=== PATIENT | male | born 1955 | race American Indian/Alaskan Native ===

== ENCOUNTER 2020-09-16 17:39 | Inpatient (IN) | payer OTHER ==
[2020-09-16] MEDS ORDERED: SODIUM CHLORIDE 0.9% 500 ML INFUS.BAG IV ONE ×2 (18:27→22:14)
[2020-09-16] MEDS ORDERED: ACETAMINOPHEN 1000 MG/100 ML VIAL (NON FORMULARY) IVPB ONE (18:49)
[2020-09-16] MEDS ORDERED: ACETAMINOPHEN INJECTION 100 ML IVPB ONE (20:11)
[2020-09-16] MEDS ORDERED: VANCOMYCIN 1 GM in D5W (PRE-DOCKED) 1,000 MG/250 ML IVPB ONE (20:20)
[2020-09-16] MEDS ORDERED: PIPERACILLIN/TAZOB 3.375 GM 3.375 GM in DEXTROSE 5%-WATER - 50 ML IVPB ONE (20:20)
[2020-09-16 20:22] LABS: VENOUS BASE EXCESS 3.6 mmol/L (-2-2); VENOUS O2 SATURATION 79.5 % (70-80); VENOUS PCO2 51.9 mmHg (38-52); VENOUS PH 7.379 (7.310-7.410)
[2020-09-16 20:23] LABS: BASO % 0.3 % (0-2.0); EOS % 0.2 % (0-4.5); HEMOGLOBIN 8.5 GM/dL (11.7-16.9); LYMPH % 7.4 % (8-40); MCH 30.7 pg (25.7-33.7); MCHC 32.7 g/dl (32.0-35.9); MEAN CELL VOLUME 93.9 fl (80-96); MEAN PLT VOLUME 9.8 fl (7.5-11.1); MONO % 4.6 % (3.8-10.2); NEUT % 87.5 % (42.8-82.8); PLATELET COUNT 291 K/MM3 (134-434); RBC 2.76 M/mm3 (4.00-5.60); RDW 16.9 % (11.9-15.9); WHITE BLOOD COUNT 15.1 K/mm3 (4.0-10.0)
[2020-09-16] MEDS ORDERED: PIPERACILLIN/TAZOB 3.375 GM 3.375 GM/50 ML BAG IVPB ONE (20:35)
[2020-09-16 20:39] LABS: CHLORIDE 101 mmol/L (98-107); POTASSIUM 4.5 mmol/L (3.5-5.1); SODIUM 142 mmol/L (136-145)
[2020-09-16 20:41] LABS: CALCIUM 9.2 mg/dL (8.5-10.1)
[2020-09-16 20:42] LABS: ALBUMIN 2.6 g/dl (3.4-5.0); ANION GAP 6 MMOL/L (8-16); BLOOD UREA NITROGEN 21.9 mg/dL (7-18); CO2 35 mmol/L (21-32); GLUCOSE,RANDOM 165 mg/dL (74-106)
[2020-09-16 20:45] LABS: CREATININE 0.4 mg/dL (0.55-1.3); SGOT/AST 14 U/L (15-37); SGPT/ALT 16 U/L (13-61)
[2020-09-16 20:47] LABS: BILIRUBIN,TOTAL 0.6 mg/dL (0.2-1); TOT PROT 7.3 g/dl (6.4-8.2)
[2020-09-16 20:48] LABS: ALK PHOS 160 U/L (45-117)
[2020-09-16] MEDS ORDERED: VANCOMYCIN 1 GRAM (PRE-DOCKED) 1,000 MG/250 ML BAG IVPB ONE (21:13)
[2020-09-16 21:27] LABS: EPI CELLS >36 /uL (0-25.1); HYALINE CASTS 54 /uL (0-3.1); URINE APPEARANCE TURBID; URINE BACTERIA >9,000 /uL (0-1359); URINE BILIRUBIN NEGATIVE (NEGATIVE); URINE COLOR YELLOW; URINE GLUCOSE (UA) NEGATIVE (NEGATIVE); URINE KETONE TRACE (NEGATIVE); URINE LEUK ESTERASE 3+ (NEGATIVE); URINE NITRITE POSITIVE (NEGATIVE); URINE PROTEIN 1+ (NEGATIVE); URINE WBC 14784 /uL (0-25.8); YEAST REVIEW (NEGATIVE)
[2020-09-16 21:34] LABS: INR 1.11 (0.83-1.09); PROTHROMBIN TIME (PATIENT) 13.6 SEC (9.7-13.0)
[2020-09-16 21:37] LABS: ACTIVATED PTT 35.9 SECONDS (25.2-36.5)
[2020-09-17 01:21] LABS: URINE RBC 135 /uL (0-23.9)
[2020-09-17] MEDS ORDERED: PIPERACILLIN/TAZOB 3.375 GM 3.375 GM/50 ML BAG IVPB ONE ×2 (03:45→10:03)
[2020-09-17] MEDS: PIPERACILLIN/TAZOB 3.375 GM 3.375 GM in DEXTROSE 5%-WATER - 50 ML IVPB SCH ×3 (04:16→20:16)
[2020-09-17] MEDS: SODIUM CHLORIDE 1,000 ML IV SCH (04:16)
[2020-09-17 06:20] LABS: BASO % 0.5 % (0-2.0); EOS % 0.7 % (0-4.5); HEMATOCRIT 22.4 % (35.4-49); HEMOGLOBIN 7.4 GM/dL (11.7-16.9); LYMPH % 12.6 % (8-40); MCH 31.2 pg (25.7-33.7); MCHC 33.2 g/dl (32.0-35.9); MEAN PLT VOLUME 9.8 fl (7.5-11.1); MONO % 6.6 % (3.8-10.2); NEUT % 79.6 % (42.8-82.8); PLATELET COUNT 242 K/MM3 (134-434); RBC 2.38 M/mm3 (4.00-5.60); WHITE BLOOD COUNT 9.3 K/mm3 (4.0-10.0)
[2020-09-17 06:39] LABS: ALBUMIN 2.2 g/dl (3.4-5.0); BLOOD UREA NITROGEN 16.2 mg/dL (7-18); CALCIUM 8.8 mg/dL (8.5-10.1)
[2020-09-17 06:42] LABS: CREATININE 0.4 mg/dL (0.55-1.3)
[2020-09-17 06:44] LABS: BILIRUBIN,TOTAL 0.5 mg/dL (0.2-1); TOT PROT 6.2 g/dl (6.4-8.2)
[2020-09-17] MEDS ORDERED: ACETAMINOPHEN INJECTION 100 ML IVPB ONE (08:51)
[2020-09-17] MEDS ORDERED: VANCOMYCIN 1 GRAM (PRE-DOCKED) 1,000 MG/250 ML BAG IVPB ONE (08:52)
[2020-09-17] MEDS ORDERED: VANCOMYCIN 1,000 MG in DEXTROSE 5%-WATER - 250 ML IVPB SCH (09:00)
[2020-09-17] MEDS: HEPARIN NA (PORCINE) 5,000 UNITS/ML 1ML VIAL SQ SCH ×2 (10:01→22:42)
[2020-09-17] MEDS ORDERED: HEPARIN NA (PORCINE) 5,000 UNITS/ML 1ML VIAL ONE (10:04)
[2020-09-17] MEDS ORDERED: ACETAMINOPHEN 1000 MG/100 ML VIAL (NON FORMULARY) IVPB ONE (10:22)
[2020-09-17] MEDS ORDERED: FENTANYL PATCH WASTE MC PRN (10:40)
[2020-09-17] MEDS ORDERED: fentaNYL 12mcg/hr PATCH.TD72 TD SCH (10:45)
[2020-09-17] MEDS ORDERED: ALBUTEROL SO4 HFA INHALER IH SCH (10:45)
[2020-09-17] MEDS ORDERED: ACETAMINOPHEN 650 MG/20.3 ML ORAL SOLUTION (CUPS) PO PRN (11:27)
[2020-09-17] MEDS: levETIRAcetam 500 MG/5 ML INJECTION VIAL IVPB SCH ×2 (12:00→22:42)
[2020-09-17 15:29] LABS: ARTERIAL BLD GAS O2 SATURATION 98.3 mmHg (95-98); ARTERIAL BLOOD GAS BASE EXCESS 5.9 mmol/L (-2-2); ARTERIAL BLOOD GAS PO2 114.9 mmHg (80-100); ARTERIAL BLOOD GAS pH 7.442 (7.350-7.450)
[2020-09-17 15:32] LABS: ALLENS TEST POSITIVE
[2020-09-17] MEDS: BACITRACIN 15 GM TUBE TOPICAL OINTMENT TP SCH ×2 (17:00→22:42)
[2020-09-17] MEDS: D5-NS + 20 MEQ KCL - 20 MEQ/1,000 ML INFUS.BAG IV SCH (17:00)
[2020-09-17] MEDS ORDERED: PIPERACILLIN/TAZOBACTAM 3.375 GM VIAL IVPB ONE (17:51)
[2020-09-17] MEDS ORDERED: DEXTROSE 5%-WATER - 50 ML IVPB ONE (17:51)
[2020-09-17] MEDS ORDERED: PT OWN MED DRAWER 7, Y5N ONE ×2 (17:51→21:25)
[2020-09-17] MEDS ORDERED: SUCRALFATE 1 GM/10 ML UNIT DOSE CUPS NGT SCH (18:00)
[2020-09-17] MEDS: SUCRALFATE 1 GM/10 ML UNIT DOSE CUPS NGT SCH (20:17)
[2020-09-17] MEDS: GABAPENTIN 250 MG/5 ML ORAL SOLUTION, 470 ML BOTTLE NGT SCH (20:18)
[2020-09-17] MEDS ORDERED: MELATONIN 5 MG TABLETS PO SCH (22:00)
[2020-09-17] MEDS ORDERED: ATORVASTATIN CA 80 MG TABLET (FP) PO SCH (22:00)
[2020-09-17] MEDS: VANCOMYCIN 1 GRAM (PRE-DOCKED) 1,000 MG/250 ML BAG IVPB SCH (22:41)
[2020-09-17] MEDS: SODIUM CHLORIDE NASAL SPRAY 44 ML BOTTLE NS SCH (22:43)
[2020-09-18] MEDS: ATORVASTATIN CA 80 MG TABLET (FP) NGT SCH ×2 (00:06→23:16)
[2020-09-18] MEDS: SUCRALFATE 1 GM/10 ML UNIT DOSE CUPS NGT SCH ×3 (00:06→23:15)
[2020-09-18] MEDS: GABAPENTIN 250 MG/5 ML ORAL SOLUTION, 470 ML BOTTLE NGT SCH ×4 (00:07→23:35)
[2020-09-18] MEDS: MELATONIN 5 MG TABLETS NR SCH ×2 (00:07→23:15)
[2020-09-18] MEDS ORDERED: METOPROLOL TARTRATE 5 MG/5 ML VIAL IVPUSH ONE (00:44)
[2020-09-18] MEDS ORDERED: PIPERACILLIN/TAZOBACTAM 3.375 GM VIAL IVPB ONE ×3 (01:35→17:31)
[2020-09-18] MEDS ORDERED: DEXTROSE 5%-WATER - 50 ML IVPB ONE ×3 (01:36→17:31)
[2020-09-18] MEDS: PIPERACILLIN/TAZOB 3.375 GM 3.375 GM in DEXTROSE 5%-WATER - 50 ML IVPB SCH ×3 (01:37→17:40)
[2020-09-18] MEDS ORDERED: PIPERACILLIN/TAZOB 3.375 GM 3.375 GM in DEXTROSE 5%-WATER - 50 ML IVPB SCH (02:00)
[2020-09-18] MEDS: SODIUM CHLORIDE 1,000 ML IV SCH (06:54)
[2020-09-18] MEDS: BACITRACIN 15 GM TUBE TOPICAL OINTMENT TP SCH ×3 (06:54→23:16)
[2020-09-18 07:21] LABS: BASO % 0.4 % (0-2.0); EOS % 0.2 % (0-4.5); HEMATOCRIT 20.8 % (35.4-49); LYMPH % 13.5 % (8-40); MCH 30.7 pg (25.7-33.7); MCHC 32.3 g/dl (32.0-35.9); MEAN CELL VOLUME 95.1 fl (80-96); MEAN PLT VOLUME 10.2 fl (7.5-11.1); MONO % 8.2 % (3.8-10.2); NEUT % 77.7 % (42.8-82.8); PLATELET COUNT 241 K/MM3 (134-434); RBC 2.19 M/mm3 (4.00-5.60); RDW 17.3 % (11.9-15.9); WHITE BLOOD COUNT 8.5 K/mm3 (4.0-10.0)
[2020-09-18 07:39] LABS: POTASSIUM 3.6 mmol/L (3.5-5.1)
[2020-09-18 07:45] LABS: CALCIUM 8.6 mg/dL (8.5-10.1)
[2020-09-18 07:49] LABS: CREATININE 0.4 mg/dL (0.55-1.3)
[2020-09-18 07:51] LABS: BILIRUBIN,TOTAL 0.6 mg/dL (0.2-1); TOT PROT 5.8 g/dl (6.4-8.2)
[2020-09-18] MEDS ORDERED: dilTIAZem HCL 50 MG/10 ML - 10 ML VIAL IVPUSH PRN (07:51)
[2020-09-18] MEDS ORDERED: dilTIAZem HCL 50 MG/10 ML - 10 ML VIAL IVPUSH ONE (07:51)
[2020-09-18] MEDS ORDERED: FUROSEMIDE 40 MG/4 ML INJECTABLE VIAL IVPUSH ONE ×3 (07:53→17:00)
[2020-09-18 08:20] LABS: HEMOGLOBIN 6.7 GM/dL (11.7-16.9)
[2020-09-18] MEDS: VANCOMYCIN 1 GRAM (PRE-DOCKED) 1,000 MG/250 ML BAG IVPB SCH ×2 (08:55→23:13)
[2020-09-18] MEDS ORDERED: VANCOMYCIN 1,000 MG in DEXTROSE 5%-WATER - 250 ML IVPB SCH (09:00)
[2020-09-18] MEDS ORDERED: FAMOTIDINE 40 MG/5 ML ORAL SUSPENSION PO SCH (10:00)
[2020-09-18] MEDS ORDERED: SUCRALFATE 1 GM TABLET (FP) PO SCH (10:00)
[2020-09-18] MEDS: HEPARIN NA (PORCINE) 5,000 UNITS/ML 1ML VIAL SQ SCH ×2 (10:28→23:15)
[2020-09-18] MEDS: levETIRAcetam 500 MG/5 ML INJECTION VIAL IVPB SCH ×2 (10:29→23:14)
[2020-09-18] MEDS: FAMOTIDINE 40 MG/5 ML ORAL SUSPENSION NGT SCH (10:30)
[2020-09-18] MEDS: SODIUM CHLORIDE NASAL SPRAY 44 ML BOTTLE NS SCH ×2 (10:30→23:35)
[2020-09-18] MEDS: LEVALBUTEROL HCL 0.31 MG/3 ML VIAL.NEB IH PRN (16:35)
[2020-09-18] MEDS ORDERED: LEVALBUTEROL HCL 0.31 MG/3 ML VIAL.NEB IH PRN (16:53)
[2020-09-18] MEDS: D5-NS + 20 MEQ KCL - 20 MEQ/1,000 ML INFUS.BAG IV SCH (17:40)
[2020-09-18] MEDS ORDERED: ALBUTEROL SO4 2.5/IPRATROPIUM 0.5 INH SOL 3 ML VIAL.NEB. NEB PRN (17:51)
[2020-09-18] MEDS ORDERED: SODIUM CHLORIDE FOR INHALATION 3 ML VIAL.NEB IH PRN (17:51)
[2020-09-18] MEDS: guaiFENesin 200 MG/10 ML 10 ML UNIT-DOSE CUPS NGT SCH ×2 (18:10→23:15)
[2020-09-18] MEDS: ACETAMINOPHEN 650 MG/20.3 ML ORAL SOLUTION (CUPS) NGT PRN (18:10)
[2020-09-18] MEDS ORDERED: ALBUTEROL SO4 2.5/IPRATROPIUM 0.5 INH SOL 3 ML VIAL.NEB. NEB SCH (20:00)
[2020-09-18] MEDS ORDERED: PT OWN MED DRAWER 7, Y5N ONE (21:32)
[2020-09-19] MEDS ORDERED: DEXTROSE 5%-WATER - 50 ML IVPB ONE ×5 (01:09→23:10)
[2020-09-19] MEDS ORDERED: PIPERACILLIN/TAZOBACTAM 3.375 GM VIAL IVPB ONE ×5 (01:09→23:10)
[2020-09-19] MEDS: PIPERACILLIN/TAZOB 3.375 GM 3.375 GM in DEXTROSE 5%-WATER - 50 ML IVPB SCH ×3 (02:46→17:42)
[2020-09-19] MEDS: BACITRACIN 15 GM TUBE TOPICAL OINTMENT TP SCH ×3 (06:34→23:13)
[2020-09-19] MEDS: GABAPENTIN 250 MG/5 ML ORAL SOLUTION, 470 ML BOTTLE NGT SCH ×3 (06:35→23:13)
[2020-09-19] MEDS ORDERED: FUROSEMIDE 40 MG/4 ML INJECTABLE VIAL IVPUSH ONE (07:30)
[2020-09-19] MEDS: LEVALBUTEROL HCL 0.31 MG/3 ML VIAL.NEB IH PRN ×2 (07:55→23:15)
[2020-09-19] MEDS: SUCRALFATE 1 GM/10 ML UNIT DOSE CUPS NGT SCH ×2 (09:32→23:13)
[2020-09-19] MEDS: guaiFENesin 200 MG/10 ML 10 ML UNIT-DOSE CUPS NGT SCH ×4 (09:32→23:14)
[2020-09-19] MEDS: HEPARIN NA (PORCINE) 5,000 UNITS/ML 1ML VIAL SQ SCH ×2 (09:33→23:14)
[2020-09-19] MEDS ORDERED: PT OWN MED DRAWER 7, Y5N ONE ×3 (09:34→13:56)
[2020-09-19] MEDS: FAMOTIDINE 40 MG/5 ML ORAL SUSPENSION NGT SCH (09:35)
[2020-09-19] MEDS: levETIRAcetam 500 MG/5 ML INJECTION VIAL IVPB SCH ×2 (10:04→23:14)
[2020-09-19] MEDS: SODIUM CHLORIDE NASAL SPRAY 44 ML BOTTLE NS SCH ×3 (10:19→23:13)
[2020-09-19] MEDS: D5-NS + 20 MEQ KCL - 20 MEQ/1,000 ML INFUS.BAG IV SCH (11:40)
[2020-09-19 11:42] LABS: BASO % 0.7 % (0-2.0); EOS % 0.9 % (0-4.5); HEMATOCRIT 30.7 % (35.4-49); HEMOGLOBIN 9.9 GM/dL (11.7-16.9); LYMPH % 9.7 % (8-40); MCHC 32.2 g/dl (32.0-35.9); MEAN CELL VOLUME 93.1 fl (80-96); MONO % 6.5 % (3.8-10.2); NEUT % 82.2 % (42.8-82.8); PLATELET COUNT 242 K/MM3 (134-434); RDW 16.3 % (11.9-15.9); WHITE BLOOD COUNT 10.2 K/mm3 (4.0-10.0)
[2020-09-19 11:59] LABS: CALCIUM 8.7 mg/dL (8.5-10.1)
[2020-09-19 12:00] LABS: BLOOD UREA NITROGEN 11.8 mg/dL (7-18)
[2020-09-19 12:03] LABS: CREATININE 0.4 mg/dL (0.55-1.3)
[2020-09-19 12:05] LABS: BILIRUBIN,TOTAL 0.8 mg/dL (0.2-1); TOT PROT 6.3 g/dl (6.4-8.2)
[2020-09-19] MEDS: VANCOMYCIN 1 GRAM (PRE-DOCKED) 1,000 MG/250 ML BAG IVPB SCH (13:59)
[2020-09-19] MEDS: KCL 10 MEQ IVPB 10 MEQ/100 ML INFUS.BAG IVPB SCH ×2 (16:04→18:29)
[2020-09-19] MEDS ORDERED: FENTANYL PATCH WASTE MC PRN ×2 (21:11)
[2020-09-19] MEDS: ATORVASTATIN CA 80 MG TABLET (FP) NGT SCH (23:13)
[2020-09-19] MEDS: MELATONIN 5 MG TABLETS NR SCH (23:14)
[2020-09-19] MEDS: ALBUTEROL SO4 2.5/IPRATROPIUM 0.5 INH SOL 3 ML VIAL.NEB. NEB SCH (23:15)
[2020-09-20] MEDS: PIPERACILLIN/TAZOB 3.375 GM 3.375 GM in DEXTROSE 5%-WATER - 50 ML IVPB SCH ×2 (02:05→10:06)
[2020-09-20] MEDS: GABAPENTIN 250 MG/5 ML ORAL SOLUTION, 470 ML BOTTLE NGT SCH ×3 (05:44→22:34)
[2020-09-20] MEDS: BACITRACIN 15 GM TUBE TOPICAL OINTMENT TP SCH ×3 (05:44→22:34)
[2020-09-20 07:04] LABS: BASO % 0.7 % (0-2.0); EOS % 1.7 % (0-4.5); HEMATOCRIT 27.4 % (35.4-49); LYMPH % 16.7 % (8-40); MCH 30.4 pg (25.7-33.7); MEAN PLT VOLUME 9.6 fl (7.5-11.1); NEUT % 71.9 % (42.8-82.8); PLATELET COUNT 230 K/MM3 (134-434); RBC 2.98 M/mm3 (4.00-5.60); RDW 16.5 % (11.9-15.9); WHITE BLOOD COUNT 7.2 K/mm3 (4.0-10.0)
[2020-09-20 07:17] LABS: POTASSIUM 3.2 mmol/L (3.5-5.1)
[2020-09-20 07:20] LABS: ALBUMIN 1.9 g/dl (3.4-5.0); BLOOD UREA NITROGEN 11.1 mg/dL (7-18); CALCIUM 8.7 mg/dL (8.5-10.1)
[2020-09-20 07:23] LABS: CREATININE 0.4 mg/dL (0.55-1.3)
[2020-09-20 07:25] LABS: BILIRUBIN,TOTAL 0.5 mg/dL (0.2-1)
[2020-09-20] MEDS: LEVALBUTEROL HCL 0.31 MG/3 ML VIAL.NEB IH PRN ×2 (07:47→20:57)
[2020-09-20] MEDS ORDERED: PIPERACILLIN/TAZOBACTAM 3.375 GM VIAL IVPB ONE (09:56)
[2020-09-20] MEDS ORDERED: DEXTROSE 5%-WATER - 50 ML IVPB ONE (09:57)
[2020-09-20] MEDS: guaiFENesin 200 MG/10 ML 10 ML UNIT-DOSE CUPS NGT SCH ×4 (10:06→22:09)
[2020-09-20] MEDS: FAMOTIDINE 40 MG/5 ML ORAL SUSPENSION NGT SCH (10:06)
[2020-09-20] MEDS: SUCRALFATE 1 GM/10 ML UNIT DOSE CUPS NGT SCH ×2 (10:06→22:34)
[2020-09-20] MEDS: HEPARIN NA (PORCINE) 5,000 UNITS/ML 1ML VIAL SQ SCH ×2 (10:07→22:08)
[2020-09-20] MEDS: levETIRAcetam 500 MG/5 ML INJECTION VIAL IVPB SCH ×2 (10:07→22:09)
[2020-09-20] MEDS: SODIUM CHLORIDE NASAL SPRAY 44 ML BOTTLE NS SCH ×2 (10:19→22:34)
[2020-09-20] MEDS ORDERED: fentaNYL 12mcg/hr PATCH.TD72 TD SCH (10:45)
[2020-09-20 10:51] LABS: MAGNESIUM 1.9 mg/dL (1.8-2.4)
[2020-09-20] MEDS: KCL 10 MEQ IVPB 10 MEQ/100 ML INFUS.BAG IVPB SCH ×3 (12:02→14:21)
[2020-09-20] MEDS: D5-NS + 20 MEQ KCL - 20 MEQ/1,000 ML INFUS.BAG IV SCH (15:14)
[2020-09-20] MEDS ORDERED: TIGECYCLINE 100 MG in DEXTROSE 5%-WATER - 100 ML IVPB ONE (16:00)
[2020-09-20] MEDS: VANCOMYCIN 1 GRAM (PRE-DOCKED) 1,000 MG/250 ML BAG IVPB SCH (17:02)
[2020-09-20] MEDS: MELATONIN 5 MG TABLETS NR SCH (22:09)
[2020-09-20] MEDS: ATORVASTATIN CA 80 MG TABLET (FP) NGT SCH (22:09)
[2020-09-21] MEDS: GABAPENTIN 250 MG/5 ML ORAL SOLUTION, 470 ML BOTTLE NGT SCH ×3 (05:26→22:43)
[2020-09-21] MEDS: BACITRACIN 15 GM TUBE TOPICAL OINTMENT TP SCH ×3 (05:26→22:42)
[2020-09-21 07:20] LABS: EOS % 4.5 % (0-4.5); HEMATOCRIT 26.6 % (35.4-49); HEMOGLOBIN 8.7 GM/dL (11.7-16.9); LYMPH % 17.9 % (8-40); MCH 30.3 pg (25.7-33.7); MCHC 32.9 g/dl (32.0-35.9); MEAN CELL VOLUME 92.1 fl (80-96); MEAN PLT VOLUME 9.2 fl (7.5-11.1); MONO % 8.5 % (3.8-10.2); NEUT % 68.1 % (42.8-82.8); PLATELET COUNT 202 K/MM3 (134-434); RBC 2.89 M/mm3 (4.00-5.60); WHITE BLOOD COUNT 5.4 K/mm3 (4.0-10.0)
[2020-09-21 07:32] LABS: POTASSIUM 3.5 mmol/L (3.5-5.1)
[2020-09-21 07:42] LABS: CALCIUM 8.8 mg/dL (8.5-10.1)
[2020-09-21 07:43] LABS: ALBUMIN 1.7 g/dl (3.4-5.0); BLOOD UREA NITROGEN 14.4 mg/dL (7-18)
[2020-09-21 07:46] LABS: CREATININE 0.3 mg/dL (0.55-1.3)
[2020-09-21 07:47] LABS: BILIRUBIN,TOTAL 0.4 mg/dL (0.2-1)
[2020-09-21 07:48] LABS: TOT PROT 5.7 g/dl (6.4-8.2)
[2020-09-21] MEDS ORDERED: PT OWN MED DRAWER 7, Y5N ONE (09:16)
[2020-09-21] MEDS: guaiFENesin 200 MG/10 ML 10 ML UNIT-DOSE CUPS NGT SCH ×4 (09:26→22:43)
[2020-09-21] MEDS: SUCRALFATE 1 GM/10 ML UNIT DOSE CUPS NGT SCH ×2 (09:26→22:43)
[2020-09-21] MEDS: HEPARIN NA (PORCINE) 5,000 UNITS/ML 1ML VIAL SQ SCH ×2 (09:26→22:42)
[2020-09-21] MEDS: TIGECYCLINE 50 MG in DEXTROSE 5%-WATER - 100 ML IVPB SCH ×2 (09:27→22:37)
[2020-09-21] MEDS: FAMOTIDINE 40 MG/5 ML ORAL SUSPENSION NGT SCH (09:29)
[2020-09-21] MEDS: SODIUM CHLORIDE NASAL SPRAY 44 ML BOTTLE NS SCH ×2 (09:30→22:48)
[2020-09-21] MEDS: levETIRAcetam 500 MG/5 ML INJECTION VIAL IVPB SCH ×2 (10:56→22:43)
[2020-09-21] MEDS ORDERED: LEVALBUTEROL HCL 0.31 MG/3 ML VIAL.NEB IH SCH (12:45)
[2020-09-21] MEDS: D5-NS + 20 MEQ KCL - 20 MEQ/1,000 ML INFUS.BAG IV SCH (13:14)
[2020-09-21] MEDS: LEVALBUTEROL HCL 0.31 MG/3 ML VIAL.NEB IH SCH ×2 (14:46→21:20)
[2020-09-21] MEDS ORDERED: FLU VACCINE (FLULAVAL) PF 60 MCG/0.5 ML SYRINGE 2020-2021 IM ONE (14:50)
[2020-09-21] MEDS: VANCOMYCIN 1 GRAM (PRE-DOCKED) 1,000 MG/250 ML BAG IVPB SCH (15:10)
[2020-09-21] MEDS: MELATONIN 5 MG TABLETS NR SCH (22:43)
[2020-09-21] MEDS: ATORVASTATIN CA 80 MG TABLET (FP) NGT SCH (22:43)
[2020-09-22] MEDS: LEVALBUTEROL HCL 0.31 MG/3 ML VIAL.NEB IH SCH (05:13)
[2020-09-22] MEDS: GABAPENTIN 250 MG/5 ML ORAL SOLUTION, 470 ML BOTTLE NGT SCH ×3 (06:30→22:20)
[2020-09-22] MEDS: BACITRACIN 15 GM TUBE TOPICAL OINTMENT TP SCH ×3 (06:30→22:21)
[2020-09-22 08:17] LABS: BASO % 0.7 % (0-2.0); EOS % 3.2 % (0-4.5); HEMATOCRIT 27.5 % (35.4-49); LYMPH % 19.9 % (8-40); MCH 29.8 pg (25.7-33.7); MCHC 32.7 g/dl (32.0-35.9); MEAN CELL VOLUME 91.1 fl (80-96); MEAN PLT VOLUME 9.6 fl (7.5-11.1); MONO % 8.2 % (3.8-10.2); PLATELET COUNT 202 K/MM3 (134-434); RBC 3.02 M/mm3 (4.00-5.60); RDW 15.4 % (11.9-15.9); WHITE BLOOD COUNT 4.8 K/mm3 (4.0-10.0)
[2020-09-22 08:34] LABS: POTASSIUM 3.3 mmol/L (3.5-5.1)
[2020-09-22 08:37] LABS: ALBUMIN 1.7 g/dl (3.4-5.0); CALCIUM 8.9 mg/dL (8.5-10.1)
[2020-09-22 08:40] LABS: CREATININE 0.3 mg/dL (0.55-1.3)
[2020-09-22 08:41] LABS: BILIRUBIN,TOTAL 0.4 mg/dL (0.2-1); TOT PROT 5.5 g/dl (6.4-8.2)
[2020-09-22] MEDS: SUCRALFATE 1 GM/10 ML UNIT DOSE CUPS NGT SCH ×2 (10:16→22:16)
[2020-09-22] MEDS: HEPARIN NA (PORCINE) 5,000 UNITS/ML 1ML VIAL SQ SCH ×2 (10:16→22:17)
[2020-09-22] MEDS: guaiFENesin 200 MG/10 ML 10 ML UNIT-DOSE CUPS NGT SCH ×4 (10:17→22:16)
[2020-09-22] MEDS: levETIRAcetam 500 MG/5 ML INJECTION VIAL IVPB SCH ×2 (10:17→22:17)
[2020-09-22] MEDS: SODIUM CHLORIDE NASAL SPRAY 44 ML BOTTLE NS SCH ×2 (10:19→22:21)
[2020-09-22] MEDS: TIGECYCLINE 50 MG in DEXTROSE 5%-WATER - 100 ML IVPB SCH ×2 (10:20→22:16)
[2020-09-22] MEDS: methylPREDNISolone NA SUCC 40 MG/1 ML VIAL IVPUSH SCH ×3 (11:58→22:17)
[2020-09-22 11:59] LABS: N-TERMINAL BNP 6059.7 pg/ml (5-125)
[2020-09-22] MEDS ORDERED: PT OWN MED DRAWER 7, Y5N ONE (12:19)
[2020-09-22] MEDS: KCL 10 MEQ IVPB 10 MEQ/100 ML INFUS.BAG IVPB SCH ×2 (12:23→14:49)
[2020-09-22] MEDS: FAMOTIDINE 40 MG/5 ML ORAL SUSPENSION NGT SCH (12:23)
[2020-09-22] MEDS: D5-NS + 20 MEQ KCL - 20 MEQ/1,000 ML INFUS.BAG IV SCH (17:03)
[2020-09-22] MEDS: VANCOMYCIN 1 GRAM (PRE-DOCKED) 1,000 MG/250 ML BAG IVPB SCH (17:03)
[2020-09-22] MEDS: ALBUTEROL SO4 0.083% IH SOL 2.5 MG/3 ML VIAL.NEB. NEB PRN (22:14)
[2020-09-22] MEDS: ATORVASTATIN CA 80 MG TABLET (FP) NGT SCH (22:17)
[2020-09-22] MEDS: MELATONIN 5 MG TABLETS NR SCH (22:17)
[2020-09-22] MEDS ORDERED: MORPHINE SULFATE 2 MG/ML VIAL IVPUSH PRN (22:39)
[2020-09-23] MEDS: methylPREDNISolone NA SUCC 40 MG/1 ML VIAL IVPUSH SCH ×2 (02:18→09:29)
[2020-09-23] MEDS: BACITRACIN 15 GM TUBE TOPICAL OINTMENT TP SCH ×3 (05:23→22:13)
[2020-09-23] MEDS: GABAPENTIN 250 MG/5 ML ORAL SOLUTION, 470 ML BOTTLE NGT SCH ×3 (05:23→22:07)
[2020-09-23 06:43] LABS: BASO % 0.1 % (0-2.0); HEMATOCRIT 27.6 % (35.4-49); MCH 29.4 pg (25.7-33.7); MCHC 32.6 g/dl (32.0-35.9); MEAN CELL VOLUME 90.3 fl (80-96); MEAN PLT VOLUME 9.8 fl (7.5-11.1); MONO % 2.1 % (3.8-10.2); NEUT % 80.8 % (42.8-82.8); PLATELET COUNT 199 K/MM3 (134-434); RBC 3.05 M/mm3 (4.00-5.60); RDW 14.9 % (11.9-15.9); WHITE BLOOD COUNT 2.2 K/mm3 (4.0-10.0)
[2020-09-23 07:18] LABS: BLOOD UREA NITROGEN 22.3 mg/dL (7-18); CALCIUM 8.5 mg/dL (8.5-10.1)
[2020-09-23 07:19] LABS: ALBUMIN 1.8 g/dl (3.4-5.0)
[2020-09-23 07:20] LABS: CREATININE 0.4 mg/dL (0.55-1.3)
[2020-09-23 07:22] LABS: BILIRUBIN,TOTAL 0.4 mg/dL (0.2-1); TOT PROT 5.5 g/dl (6.4-8.2)
[2020-09-23] MEDS: HEPARIN NA (PORCINE) 5,000 UNITS/ML 1ML VIAL SQ SCH ×2 (09:28→22:05)
[2020-09-23] MEDS: SUCRALFATE 1 GM/10 ML UNIT DOSE CUPS NGT SCH ×2 (09:29→22:05)
[2020-09-23] MEDS: levETIRAcetam 500 MG/5 ML INJECTION VIAL IVPB SCH ×2 (09:29→22:14)
[2020-09-23] MEDS: guaiFENesin 200 MG/10 ML 10 ML UNIT-DOSE CUPS NGT SCH ×4 (09:29→22:07)
[2020-09-23] MEDS: FAMOTIDINE 40 MG/5 ML ORAL SUSPENSION NGT SCH (09:31)
[2020-09-23] MEDS: D5-NS + 20 MEQ KCL - 20 MEQ/1,000 ML INFUS.BAG IV SCH ×2 (09:32→13:34)
[2020-09-23] MEDS: SODIUM CHLORIDE NASAL SPRAY 44 ML BOTTLE NS SCH ×2 (09:32→22:18)
[2020-09-23] MEDS: TIGECYCLINE 50 MG in DEXTROSE 5%-WATER - 100 ML IVPB SCH ×2 (11:27→22:54)
[2020-09-23] MEDS: ATORVASTATIN CA 80 MG TABLET (FP) NGT SCH (22:08)
[2020-09-23] MEDS: MELATONIN 5 MG TABLETS NR SCH (22:08)
[2020-09-23] MEDS: ALBUTEROL SO4 0.083% IH SOL 2.5 MG/3 ML VIAL.NEB. NEB PRN (23:13)
[2020-09-24] MEDS ORDERED: PT OWN MED DRAWER 7, Y5N ONE ×3 (03:24→14:16)
[2020-09-24] MEDS: GABAPENTIN 250 MG/5 ML ORAL SOLUTION, 470 ML BOTTLE NGT SCH ×3 (05:01→23:21)
[2020-09-24] MEDS: BACITRACIN 15 GM TUBE TOPICAL OINTMENT TP SCH ×3 (05:07→22:31)
[2020-09-24] MEDS ORDERED: oxyCODONE HCL 5 MG TABLET NGT PRN (08:25)
[2020-09-24] MEDS: SUCRALFATE 1 GM/10 ML UNIT DOSE CUPS NGT SCH ×2 (10:47→22:25)
[2020-09-24] MEDS: HEPARIN NA (PORCINE) 5,000 UNITS/ML 1ML VIAL SQ SCH ×2 (10:47→22:25)
[2020-09-24] MEDS: levETIRAcetam 500 MG/5 ML INJECTION VIAL IVPB SCH ×2 (10:47→22:27)
[2020-09-24] MEDS: methylPREDNISolone NA SUCC 40 MG/1 ML VIAL IVPUSH SCH (10:48)
[2020-09-24] MEDS: guaiFENesin 200 MG/10 ML 10 ML UNIT-DOSE CUPS NGT SCH ×4 (10:48→22:25)
[2020-09-24] MEDS: FAMOTIDINE 40 MG/5 ML ORAL SUSPENSION NGT SCH (10:48)
[2020-09-24] MEDS: TIGECYCLINE 50 MG in DEXTROSE 5%-WATER - 100 ML IVPB SCH ×3 (10:49→22:30)
[2020-09-24] MEDS: SODIUM CHLORIDE NASAL SPRAY 44 ML BOTTLE NS SCH ×2 (10:50→22:31)
[2020-09-24] MEDS: D5-NS + 20 MEQ KCL - 20 MEQ/1,000 ML INFUS.BAG IV SCH (12:53)
[2020-09-24] MEDS: ATORVASTATIN CA 80 MG TABLET (FP) NGT SCH (22:27)
[2020-09-24] MEDS: MELATONIN 5 MG TABLETS NR SCH (22:27)
[2020-09-25] MEDS: ALBUTEROL SO4 0.083% IH SOL 2.5 MG/3 ML VIAL.NEB. NEB PRN (05:01)
[2020-09-25] MEDS: GABAPENTIN 250 MG/5 ML ORAL SOLUTION, 470 ML BOTTLE NGT SCH ×3 (05:24→22:09)
[2020-09-25] MEDS: BACITRACIN 15 GM TUBE TOPICAL OINTMENT TP SCH ×3 (05:36→21:59)
[2020-09-25 08:32] LABS: IRON SERUM 62 ug/dL (50-175)
[2020-09-25 08:33] LABS: TOTAL IRON BINDING CAPACITY 117 ug/dL (250-450)
[2020-09-25] MEDS ORDERED: PT OWN MED DRAWER 7, Y5N ONE ×2 (11:36→22:05)
[2020-09-25] MEDS: levETIRAcetam 500 MG/5 ML INJECTION VIAL IVPB SCH ×2 (12:03→21:59)
[2020-09-25] MEDS: methylPREDNISolone NA SUCC 40 MG/1 ML VIAL IVPUSH SCH (12:05)
[2020-09-25] MEDS: TIGECYCLINE 50 MG in DEXTROSE 5%-WATER - 100 ML IVPB SCH ×2 (12:05→22:11)
[2020-09-25] MEDS: FAMOTIDINE 40 MG/5 ML ORAL SUSPENSION NGT SCH (12:06)
[2020-09-25] MEDS: SUCRALFATE 1 GM/10 ML UNIT DOSE CUPS NGT SCH ×2 (12:06→21:59)
[2020-09-25] MEDS: HEPARIN NA (PORCINE) 5,000 UNITS/ML 1ML VIAL SQ SCH ×2 (12:06→22:00)
[2020-09-25] MEDS: guaiFENesin 200 MG/10 ML 10 ML UNIT-DOSE CUPS NGT SCH ×4 (12:07→22:10)
[2020-09-25] MEDS: SODIUM CHLORIDE NASAL SPRAY 44 ML BOTTLE NS SCH ×2 (12:07→22:09)
[2020-09-25] MEDS: ATORVASTATIN CA 80 MG TABLET (FP) NGT SCH (21:59)
[2020-09-25] MEDS: MELATONIN 5 MG TABLETS NR SCH (21:59)
[2020-09-25] MEDS: D5-NS + 20 MEQ KCL - 20 MEQ/1,000 ML INFUS.BAG IV SCH (22:12)
[2020-09-26] MEDS ORDERED: PT OWN MED DRAWER 7, Y5N ONE ×5 (05:43→14:02)
[2020-09-26] MEDS: GABAPENTIN 250 MG/5 ML ORAL SOLUTION, 470 ML BOTTLE NGT SCH ×3 (06:12→22:27)
[2020-09-26] MEDS: BACITRACIN 15 GM TUBE TOPICAL OINTMENT TP SCH ×3 (06:12→22:31)
[2020-09-26] MEDS: HEPARIN NA (PORCINE) 5,000 UNITS/ML 1ML VIAL SQ SCH (10:32)
[2020-09-26] MEDS: SUCRALFATE 1 GM/10 ML UNIT DOSE CUPS NGT SCH ×2 (10:32→22:27)
[2020-09-26] MEDS: guaiFENesin 200 MG/10 ML 10 ML UNIT-DOSE CUPS NGT SCH ×4 (10:33→22:28)
[2020-09-26] MEDS: FAMOTIDINE 40 MG/5 ML ORAL SUSPENSION NGT SCH (10:33)
[2020-09-26] MEDS: TIGECYCLINE 50 MG in DEXTROSE 5%-WATER - 100 ML IVPB SCH (10:33)
[2020-09-26] MEDS: levETIRAcetam 500 MG/5 ML INJECTION VIAL IVPB SCH ×2 (10:40→22:28)
[2020-09-26] MEDS: SODIUM CHLORIDE NASAL SPRAY 44 ML BOTTLE NS SCH ×2 (10:41→22:31)
[2020-09-26 12:27] LABS: BASO % 0.5 % (0-2.0); EOS % 1.6 % (0-4.5); HEMATOCRIT 30.6 % (35.4-49); HEMOGLOBIN 10.3 GM/dL (11.7-16.9); MCH 30.1 pg (25.7-33.7); MCHC 33.6 g/dl (32.0-35.9); MEAN CELL VOLUME 89.7 fl (80-96); MEAN PLT VOLUME 10.4 fl (7.5-11.1); MONO % 7.7 % (3.8-10.2); NEUT % 70.2 % (42.8-82.8); PLATELET COUNT 191 K/MM3 (134-434); RBC 3.41 M/mm3 (4.00-5.60); RDW 15.2 % (11.9-15.9); WHITE BLOOD COUNT 4.9 K/mm3 (4.0-10.0)
[2020-09-26 12:30] LABS: INR 1.24 (0.83-1.09); PROTHROMBIN TIME (PATIENT) 15.1 SEC (9.7-13.0)
[2020-09-26 12:50] LABS: POTASSIUM 3.5 mmol/L (3.5-5.1)
[2020-09-26 12:52] LABS: CALCIUM 8.3 mg/dL (8.5-10.1)
[2020-09-26 12:53] LABS: BLOOD UREA NITROGEN 19.9 mg/dL (7-18)
[2020-09-26 12:56] LABS: CREATININE 0.4 mg/dL (0.55-1.3)
[2020-09-26 12:57] LABS: BILIRUBIN,TOTAL 0.4 mg/dL (0.2-1); TOT PROT 5.5 g/dl (6.4-8.2)
[2020-09-26] MEDS: D5-NS + 20 MEQ KCL - 20 MEQ/1,000 ML INFUS.BAG IV SCH (14:08)
[2020-09-26] MEDS: ACETAMINOPHEN 650 MG/20.3 ML ORAL SOLUTION (CUPS) NGT PRN (14:42)
[2020-09-26] MEDS: MELATONIN 5 MG TABLETS NR SCH (22:28)
[2020-09-26] MEDS: ATORVASTATIN CA 80 MG TABLET (FP) NGT SCH (22:28)
[2020-09-27] MEDS: D5-NS + 20 MEQ KCL - 20 MEQ/1,000 ML INFUS.BAG IV SCH ×2 (02:52→11:56)
[2020-09-27] MEDS: BACITRACIN 15 GM TUBE TOPICAL OINTMENT TP SCH (05:43)
[2020-09-27] MEDS: GABAPENTIN 250 MG/5 ML ORAL SOLUTION, 470 ML BOTTLE NGT SCH ×3 (05:43→22:56)
[2020-09-27] MEDS: ALBUTEROL SO4 0.083% IH SOL 2.5 MG/3 ML VIAL.NEB. NEB PRN (08:04)
[2020-09-27] MEDS ORDERED: PT OWN MED DRAWER 7, Y5N ONE (10:32)
[2020-09-27] MEDS: HEPARIN NA (PORCINE) 5,000 UNITS/ML 1ML VIAL SQ SCH ×2 (10:38→22:56)
[2020-09-27] MEDS: SUCRALFATE 1 GM/10 ML UNIT DOSE CUPS NGT SCH ×2 (10:38→22:54)
[2020-09-27] MEDS: guaiFENesin 200 MG/10 ML 10 ML UNIT-DOSE CUPS NGT SCH ×4 (10:38→22:54)
[2020-09-27] MEDS: FAMOTIDINE 40 MG/5 ML ORAL SUSPENSION NGT SCH (10:38)
[2020-09-27] MEDS: levETIRAcetam 500 MG/5 ML INJECTION VIAL IVPB SCH ×2 (10:38→22:54)
[2020-09-27] MEDS: SODIUM CHLORIDE NASAL SPRAY 44 ML BOTTLE NS SCH ×2 (10:40→22:56)
[2020-09-27] MEDS: ACETAMINOPHEN 650 MG/20.3 ML ORAL SOLUTION (CUPS) NGT PRN ×2 (11:55→22:54)
[2020-09-27 15:21] LABS: BASO % 0.3 % (0-2.0); EOS % 1.4 % (0-4.5); HEMATOCRIT 29.5 % (35.4-49); HEMOGLOBIN 9.8 GM/dL (11.7-16.9); LYMPH % 17.2 % (8-40); MCH 29.4 pg (25.7-33.7); MCHC 33.2 g/dl (32.0-35.9); MEAN CELL VOLUME 88.8 fl (80-96); MEAN PLT VOLUME 10.2 fl (7.5-11.1); MONO % 6.2 % (3.8-10.2); NEUT % 74.9 % (42.8-82.8); PLATELET COUNT 172 K/MM3 (134-434); RBC 3.32 M/mm3 (4.00-5.60); RDW 15.3 % (11.9-15.9)
[2020-09-27 15:47] LABS: POTASSIUM 3.7 mmol/L (3.5-5.1)
[2020-09-27 15:48] LABS: CALCIUM 8.3 mg/dL (8.5-10.1)
[2020-09-27 15:49] LABS: BLOOD UREA NITROGEN 14.8 mg/dL (7-18)
[2020-09-27 15:52] LABS: CREATININE 0.4 mg/dL (0.55-1.3)
[2020-09-27] MEDS: ATORVASTATIN CA 80 MG TABLET (FP) NGT SCH (22:56)
[2020-09-27] MEDS: MELATONIN 5 MG TABLETS NR SCH (22:56)
[2020-09-28] MEDS: ACETAMINOPHEN 650 MG/20.3 ML ORAL SOLUTION (CUPS) NGT PRN ×3 (06:17→22:46)
[2020-09-28] MEDS: GABAPENTIN 250 MG/5 ML ORAL SOLUTION, 470 ML BOTTLE NGT SCH ×3 (06:17→22:36)
[2020-09-28 09:14] LABS: BASO % 0.4 % (0-2.0); EOS % 3.6 % (0-4.5); HEMATOCRIT 27.3 % (35.4-49); HEMOGLOBIN 9.2 GM/dL (11.7-16.9); LYMPH % 25.6 % (8-40); MCH 30.3 pg (25.7-33.7); MCHC 33.6 g/dl (32.0-35.9); MEAN CELL VOLUME 90.1 fl (80-96); MEAN PLT VOLUME 11.2 fl (7.5-11.1); MONO % 7.6 % (3.8-10.2); NEUT % 62.8 % (42.8-82.8); PLATELET COUNT 178 K/MM3 (134-434); RBC 3.03 M/mm3 (4.00-5.60); RDW 15.6 % (11.9-15.9); WHITE BLOOD COUNT 5.1 K/mm3 (4.0-10.0)
[2020-09-28 09:34] LABS: POTASSIUM 4.1 mmol/L (3.5-5.1)
[2020-09-28 09:59] LABS: CALCIUM 8.3 mg/dL (8.5-10.1)
[2020-09-28 10:00] LABS: BLOOD UREA NITROGEN 11.9 mg/dL (7-18)
[2020-09-28 10:03] LABS: CREATININE 0.3 mg/dL (0.55-1.3)
[2020-09-28] MEDS ORDERED: PT OWN MED DRAWER 7, Y5N ONE (11:23)
[2020-09-28] MEDS: FAMOTIDINE 40 MG/5 ML ORAL SUSPENSION NGT SCH (11:30)
[2020-09-28] MEDS: HEPARIN NA (PORCINE) 5,000 UNITS/ML 1ML VIAL SQ SCH ×2 (11:30→22:36)
[2020-09-28] MEDS: levETIRAcetam 500 MG/5 ML INJECTION VIAL IVPB SCH ×2 (11:30→17:09)
[2020-09-28] MEDS: SODIUM CHLORIDE NASAL SPRAY 44 ML BOTTLE NS SCH ×2 (11:31→22:48)
[2020-09-28] MEDS: BACITRACIN 15 GM TUBE TOPICAL OINTMENT TP SCH (11:31)
[2020-09-28] MEDS: SUCRALFATE 1 GM/10 ML UNIT DOSE CUPS NGT SCH ×2 (11:31→22:35)
[2020-09-28] MEDS: D5-NS + 20 MEQ KCL - 20 MEQ/1,000 ML INFUS.BAG IV SCH (11:32)
[2020-09-28] MEDS: guaiFENesin 200 MG/10 ML 10 ML UNIT-DOSE CUPS NGT SCH ×4 (11:32→22:35)
[2020-09-28] MEDS: ALBUTEROL SO4 0.083% IH SOL 2.5 MG/3 ML VIAL.NEB. NEB PRN (21:35)
[2020-09-28] MEDS: levETIRAcetam 500 MG/5 ML ORAL SOLUTION (UNIT-DOSE CUPS) GT SCH (22:35)
[2020-09-28] MEDS: MELATONIN 5 MG TABLETS NR SCH (22:35)
[2020-09-28] MEDS: ATORVASTATIN CA 80 MG TABLET (FP) NGT SCH (22:36)
[2020-09-29] MEDS: ACETAMINOPHEN 650 MG/20.3 ML ORAL SOLUTION (CUPS) NGT PRN ×2 (06:04→22:35)
[2020-09-29] MEDS: GABAPENTIN 250 MG/5 ML ORAL SOLUTION, 470 ML BOTTLE NGT SCH ×3 (06:04→22:35)
[2020-09-29 07:31] LABS: BASO % 0.4 % (0-2.0); HEMOGLOBIN 8.7 GM/dL (11.7-16.9); LYMPH % 20.1 % (8-40); MCH 29.6 pg (25.7-33.7); MCHC 33.5 g/dl (32.0-35.9); MEAN CELL VOLUME 88.3 fl (80-96); MEAN PLT VOLUME 10.4 fl (7.5-11.1); MONO % 5.8 % (3.8-10.2); NEUT % 70.7 % (42.8-82.8); PLATELET COUNT 176 K/MM3 (134-434); RBC 2.95 M/mm3 (4.00-5.60); RDW 15.3 % (11.9-15.9); WHITE BLOOD COUNT 6.6 K/mm3 (4.0-10.0)
[2020-09-29 08:02] LABS: POTASSIUM 4.1 mmol/L (3.5-5.1)
[2020-09-29 08:14] LABS: CALCIUM 8.5 mg/dL (8.5-10.1)
[2020-09-29 08:15] LABS: BLOOD UREA NITROGEN 10.9 mg/dL (7-18)
[2020-09-29 08:18] LABS: CREATININE 0.3 mg/dL (0.55-1.3)
[2020-09-29] MEDS ORDERED: PT OWN MED DRAWER 7, Y5N ONE ×2 (11:09)
[2020-09-29] MEDS: guaiFENesin 200 MG/10 ML 10 ML UNIT-DOSE CUPS NGT SCH ×4 (11:15→22:34)
[2020-09-29] MEDS: SUCRALFATE 1 GM/10 ML UNIT DOSE CUPS NGT SCH ×2 (11:15→22:33)
[2020-09-29] MEDS: FAMOTIDINE 40 MG/5 ML ORAL SUSPENSION NGT SCH (11:16)
[2020-09-29] MEDS: SODIUM CHLORIDE NASAL SPRAY 44 ML BOTTLE NS SCH ×2 (11:16→22:35)
[2020-09-29] MEDS: HEPARIN NA (PORCINE) 5,000 UNITS/ML 1ML VIAL SQ SCH ×2 (11:16→22:33)
[2020-09-29] MEDS: levETIRAcetam 500 MG/5 ML ORAL SOLUTION (UNIT-DOSE CUPS) GT SCH ×2 (11:16→22:34)
[2020-09-29] MEDS: BACITRACIN 15 GM TUBE TOPICAL OINTMENT TP SCH (11:17)
[2020-09-29] MEDS: NYSTATIN 500,000 UNITS/5 ML SUSPENSION PO SCH (17:46)
[2020-09-29] MEDS: MELATONIN 5 MG TABLETS NR SCH (22:34)
[2020-09-29] MEDS: ATORVASTATIN CA 80 MG TABLET (FP) NGT SCH (22:34)
[2020-09-29] MEDS: DOCUSATE NA 100 MG/10 ML UNIT-DOSE CUPS NGT PRN (22:35)
[2020-09-30] MEDS: NYSTATIN 500,000 UNITS/5 ML SUSPENSION PO SCH ×5 (00:01→23:20)
[2020-09-30] MEDS: GABAPENTIN 250 MG/5 ML ORAL SOLUTION, 470 ML BOTTLE NGT SCH ×3 (05:50→22:48)
[2020-09-30] MEDS: ACETAMINOPHEN 650 MG/20.3 ML ORAL SOLUTION (CUPS) NGT PRN ×3 (05:50→22:48)
[2020-09-30 07:32] LABS: BASO % 0.6 % (0-2.0); HEMATOCRIT 28.2 % (35.4-49); HEMOGLOBIN 9.4 GM/dL (11.7-16.9); MCH 29.8 pg (25.7-33.7); MCHC 33.2 g/dl (32.0-35.9); MEAN CELL VOLUME 89.8 fl (80-96); MEAN PLT VOLUME 10.7 fl (7.5-11.1); MONO % 5.3 % (3.8-10.2); NEUT % 72.1 % (42.8-82.8); PLATELET COUNT 175 K/MM3 (134-434); RBC 3.14 M/mm3 (4.00-5.60); RDW 16.1 % (11.9-15.9); WHITE BLOOD COUNT 7.5 K/mm3 (4.0-10.0)
[2020-09-30 07:44] LABS: POTASSIUM 4.4 mmol/L (3.5-5.1)
[2020-09-30 07:46] LABS: CALCIUM 8.3 mg/dL (8.5-10.1)
[2020-09-30 07:47] LABS: BLOOD UREA NITROGEN 12.5 mg/dL (7-18)
[2020-09-30 07:50] LABS: CREATININE 0.3 mg/dL (0.55-1.3)
[2020-09-30] MEDS ORDERED: PT OWN MED DRAWER 7, Y5N ONE ×2 (09:55→16:24)
[2020-09-30] MEDS: guaiFENesin 200 MG/10 ML 10 ML UNIT-DOSE CUPS NGT SCH ×4 (09:59→22:48)
[2020-09-30] MEDS: SUCRALFATE 1 GM/10 ML UNIT DOSE CUPS NGT SCH ×2 (09:59→22:48)
[2020-09-30] MEDS: BACITRACIN 15 GM TUBE TOPICAL OINTMENT TP SCH ×2 (10:00→10:01)
[2020-09-30] MEDS: HEPARIN NA (PORCINE) 5,000 UNITS/ML 1ML VIAL SQ SCH ×2 (10:00→22:48)
[2020-09-30] MEDS: levETIRAcetam 500 MG/5 ML ORAL SOLUTION (UNIT-DOSE CUPS) GT SCH ×2 (10:00→22:48)
[2020-09-30] MEDS: SODIUM CHLORIDE NASAL SPRAY 44 ML BOTTLE NS SCH ×2 (10:01→22:49)
[2020-09-30] MEDS: FAMOTIDINE 40 MG/5 ML ORAL SUSPENSION NGT SCH (12:07)
[2020-09-30] MEDS: ALBUTEROL SO4 0.083% IH SOL 2.5 MG/3 ML VIAL.NEB. NEB PRN (20:28)
[2020-09-30] MEDS: ATORVASTATIN CA 80 MG TABLET (FP) NGT SCH (22:48)
[2020-09-30] MEDS: MELATONIN 5 MG TABLETS NR SCH (22:48)
[2020-10-01] MEDS ORDERED: SODIUM CHLORIDE 250 ML IV STA (06:10)
[2020-10-01] MEDS ORDERED: ACETAMINOPHEN 1000 MG/100 ML VIAL (NON FORMULARY) IVPB ONE (06:19)
[2020-10-01] MEDS: NYSTATIN 500,000 UNITS/5 ML SUSPENSION PO SCH ×4 (07:11→23:51)
[2020-10-01] MEDS: GABAPENTIN 250 MG/5 ML ORAL SOLUTION, 470 ML BOTTLE NGT SCH ×3 (07:11→23:49)
[2020-10-01 08:05] LABS: BASO % 0.5 % (0-2.0); EOS % 0.2 % (0-4.5); HEMATOCRIT 26.7 % (35.4-49); HEMOGLOBIN 8.9 GM/dL (11.7-16.9); MCH 29.7 pg (25.7-33.7); MCHC 33.4 g/dl (32.0-35.9); MEAN CELL VOLUME 88.9 fl (80-96); MEAN PLT VOLUME 10.8 fl (7.5-11.1); NEUT % 79.3 % (42.8-82.8); PLATELET COUNT 200 K/MM3 (134-434); RBC 3.01 M/mm3 (4.00-5.60); RDW 16.2 % (11.9-15.9); WHITE BLOOD COUNT 10.8 K/mm3 (4.0-10.0)
[2020-10-01 08:12] LABS: POTASSIUM 4.2 mmol/L (3.5-5.1)
[2020-10-01 08:25] LABS: CALCIUM 8.6 mg/dL (8.5-10.1)
[2020-10-01 08:28] LABS: CREATININE 0.4 mg/dL (0.55-1.3)
[2020-10-01] MEDS: guaiFENesin 200 MG/10 ML 10 ML UNIT-DOSE CUPS NGT SCH ×4 (10:51→23:49)
[2020-10-01] MEDS: FAMOTIDINE 40 MG/5 ML ORAL SUSPENSION NGT SCH (10:51)
[2020-10-01] MEDS: SODIUM CHLORIDE NASAL SPRAY 44 ML BOTTLE NS SCH ×2 (10:52→23:50)
[2020-10-01] MEDS: SUCRALFATE 1 GM/10 ML UNIT DOSE CUPS NGT SCH ×2 (10:52→23:46)
[2020-10-01] MEDS: levETIRAcetam 500 MG/5 ML ORAL SOLUTION (UNIT-DOSE CUPS) GT SCH ×2 (10:52→23:48)
[2020-10-01] MEDS: BACITRACIN 15 GM TUBE TOPICAL OINTMENT TP SCH ×2 (10:53)
[2020-10-01] MEDS: HEPARIN NA (PORCINE) 5,000 UNITS/ML 1ML VIAL SQ SCH ×2 (10:57→23:50)
[2020-10-01] MEDS ORDERED: SODIUM CHLORIDE 1,000 ML IV SCH (11:00)
[2020-10-01] MEDS ORDERED: VANCOMYCIN 1 GRAM (PRE-DOCKED) 1,000 MG/250 ML BAG IVPB ONE (11:33)
[2020-10-01] MEDS ORDERED: GENTAMICIN 80 MG PREMIXED IVPB 80 MG/100 ML BAG IVPB ONE (11:45)
[2020-10-01] MEDS ORDERED: TIGECYCLINE 100 MG in DEXTROSE 5%-WATER - 100 ML IVPB ONE (12:00)
[2020-10-01 13:14] VITALS: BMI 23.0
[2020-10-01] MEDS ORDERED: PT OWN MED DRAWER 7, Y5N ONE ×2 (13:53→15:01)
[2020-10-01] MEDS: ACETAMINOPHEN 650 MG/20.3 ML ORAL SOLUTION (CUPS) NGT PRN (17:27)
[2020-10-01] MEDS: AMINO ACIDS/PROTEIN HYDROLYS 30 ML LIQUID.PKT PO SCH (17:27)
[2020-10-01] MEDS: ATORVASTATIN CA 80 MG TABLET (FP) NGT SCH (23:48)
[2020-10-01] MEDS: MELATONIN 5 MG TABLETS NR SCH (23:49)
[2020-10-02] MEDS: levETIRAcetam 500 MG/5 ML INJECTION VIAL IVPB SCH ×3 (00:45→23:20)
[2020-10-02 01:08] LABS: EPI CELLS 28 /uL (0-25.1); HYALINE CASTS 18 /uL (0-3.1); PH,URINE 6.5 (5.0-8.0); URINE APPEARANCE CLOUDY; URINE BACTERIA >9,000 /uL (0-1359); URINE BILIRUBIN NEGATIVE (NEGATIVE); URINE COLOR YELLOW; URINE GLUCOSE (UA) NEGATIVE (NEGATIVE); URINE KETONE NEGATIVE (NEGATIVE); URINE LEUK ESTERASE NEGATIVE (NEGATIVE); URINE NITRITE POSITIVE (NEGATIVE); URINE PROTEIN TRACE (NEGATIVE); URINE UROBILINOGEN 0.2 mg/dL (0.2-1.0); YEAST REVIEW (NEGATIVE)
[2020-10-02 04:52] LABS: URINE RBC 35 /uL (0-23.9); URINE WBC 86 /uL (0-25.8)
[2020-10-02] MEDS: GABAPENTIN 250 MG/5 ML ORAL SOLUTION, 470 ML BOTTLE NGT SCH ×3 (05:25→23:20)
[2020-10-02] MEDS: NYSTATIN 500,000 UNITS/5 ML SUSPENSION PO SCH ×3 (05:26→18:43)
[2020-10-02 08:10] LABS: BASO % 0.6 % (0-2.0); EOS % 0.1 % (0-4.5); LYMPH % 14.2 % (8-40); MCH 29.5 pg (25.7-33.7); MCHC 33.3 g/dl (32.0-35.9); MEAN CELL VOLUME 88.5 fl (80-96); MEAN PLT VOLUME 10.8 fl (7.5-11.1); MONO % 9.1 % (3.8-10.2); PLATELET COUNT 182 K/MM3 (134-434); RBC 2.71 M/mm3 (4.00-5.60); RDW 16.8 % (11.9-15.9); WHITE BLOOD COUNT 7.1 K/mm3 (4.0-10.0)
[2020-10-02 08:14] LABS: POTASSIUM 3.6 mmol/L (3.5-5.1)
[2020-10-02 08:22] LABS: ALBUMIN 1.8 g/dl (3.4-5.0); BLOOD UREA NITROGEN 14.1 mg/dL (7-18); CALCIUM 8.2 mg/dL (8.5-10.1)
[2020-10-02 08:23] LABS: BILIRUBIN,TOTAL 0.7 mg/dL (0.2-1); TOT PROT 5.4 g/dl (6.4-8.2)
[2020-10-02 08:24] LABS: CREATININE 0.3 mg/dL (0.55-1.3)
[2020-10-02] MEDS: AMINO ACIDS/PROTEIN HYDROLYS 30 ML LIQUID.PKT PO SCH ×2 (09:51→18:41)
[2020-10-02] MEDS: HEPARIN NA (PORCINE) 5,000 UNITS/ML 1ML VIAL SQ SCH ×2 (10:03→23:20)
[2020-10-02] MEDS: SUCRALFATE 1 GM/10 ML UNIT DOSE CUPS NGT SCH ×2 (10:03→23:20)
[2020-10-02] MEDS: FAMOTIDINE 40 MG/5 ML ORAL SUSPENSION NGT SCH (10:04)
[2020-10-02] MEDS: guaiFENesin 200 MG/10 ML 10 ML UNIT-DOSE CUPS NGT SCH ×4 (10:04→23:21)
[2020-10-02] MEDS: BACITRACIN 15 GM TUBE TOPICAL OINTMENT TP SCH ×2 (10:04→10:05)
[2020-10-02] MEDS: SODIUM CHLORIDE NASAL SPRAY 44 ML BOTTLE NS SCH ×2 (10:04→23:21)
[2020-10-02] MEDS: TIGECYCLINE 50 MG in DEXTROSE 5%-WATER - 100 ML IVPB SCH ×2 (11:48→23:21)
[2020-10-02] MEDS ORDERED: PT OWN MED DRAWER 7, Y5N ONE (20:02)
[2020-10-02] MEDS: MELATONIN 5 MG TABLETS NR SCH (23:20)
[2020-10-02] MEDS: ATORVASTATIN CA 80 MG TABLET (FP) NGT SCH (23:20)
[2020-10-03] MEDS: NYSTATIN 500,000 UNITS/5 ML SUSPENSION PO SCH ×5 (00:51→23:44)
[2020-10-03] MEDS: GABAPENTIN 250 MG/5 ML ORAL SOLUTION, 470 ML BOTTLE NGT SCH ×3 (05:53→22:10)
[2020-10-03 08:02] LABS: CALCIUM 8.5 mg/dL (8.5-10.1)
[2020-10-03 08:04] LABS: ALBUMIN 1.7 g/dl (3.4-5.0); BLOOD UREA NITROGEN 17.1 mg/dL (7-18)
[2020-10-03 08:06] LABS: CREATININE 0.3 mg/dL (0.55-1.3)
[2020-10-03 08:08] LABS: TOT PROT 5.2 g/dl (6.4-8.2)
[2020-10-03 08:20] LABS: POTASSIUM 3.7 mmol/L (3.5-5.1)
[2020-10-03] MEDS: AMINO ACIDS/PROTEIN HYDROLYS 30 ML LIQUID.PKT PO SCH ×2 (09:27→17:10)
[2020-10-03] MEDS: BACITRACIN 15 GM TUBE TOPICAL OINTMENT TP SCH ×2 (09:28→09:29)
[2020-10-03] MEDS: guaiFENesin 200 MG/10 ML 10 ML UNIT-DOSE CUPS NGT SCH ×4 (09:30→22:10)
[2020-10-03] MEDS: HEPARIN NA (PORCINE) 5,000 UNITS/ML 1ML VIAL SQ SCH ×2 (09:31→22:08)
[2020-10-03] MEDS: FAMOTIDINE 40 MG/5 ML ORAL SUSPENSION NGT SCH (09:31)
[2020-10-03] MEDS: SUCRALFATE 1 GM/10 ML UNIT DOSE CUPS NGT SCH ×2 (09:31→22:10)
[2020-10-03] MEDS: levETIRAcetam 500 MG/5 ML INJECTION VIAL IVPB SCH ×2 (09:32→22:08)
[2020-10-03] MEDS: SODIUM CHLORIDE NASAL SPRAY 44 ML BOTTLE NS SCH ×2 (09:32→22:12)
[2020-10-03 09:37] LABS: BASO % 0.4 % (0-2.0); EOS % 0.4 % (0-4.5); HEMATOCRIT 23.2 % (35.4-49); HEMOGLOBIN 7.8 GM/dL (11.7-16.9); LYMPH % 15.2 % (8-40); MCH 30.1 pg (25.7-33.7); MCHC 33.5 g/dl (32.0-35.9); MEAN CELL VOLUME 89.9 fl (80-96); MEAN PLT VOLUME 11.2 fl (7.5-11.1); MONO % 9.6 % (3.8-10.2); NEUT % 74.4 % (42.8-82.8); PLATELET COUNT 198 K/MM3 (134-434); RBC 2.58 M/mm3 (4.00-5.60); RDW 16.6 % (11.9-15.9); WHITE BLOOD COUNT 6.4 K/mm3 (4.0-10.0)
[2020-10-03] MEDS: TIGECYCLINE 50 MG in DEXTROSE 5%-WATER - 100 ML IVPB SCH ×2 (10:58→22:08)
[2020-10-03] MEDS ORDERED: GENTAMICIN 80 MG PREMIXED IVPB 80 MG/100 ML BAG IVPB ONE (17:30)
[2020-10-03] MEDS: ATORVASTATIN CA 80 MG TABLET (FP) NGT SCH (22:08)
[2020-10-03] MEDS: MELATONIN 5 MG TABLETS NR SCH (22:08)
[2020-10-04] MEDS ORDERED: PT OWN MED DRAWER 7, Y5N ONE ×2 (06:35→12:28)
[2020-10-04] MEDS: NYSTATIN 500,000 UNITS/5 ML SUSPENSION PO SCH ×3 (06:38→18:17)
[2020-10-04] MEDS: GABAPENTIN 250 MG/5 ML ORAL SOLUTION, 470 ML BOTTLE NGT SCH ×3 (06:38→22:51)
[2020-10-04 07:49] LABS: BASO % 0.5 % (0-2.0); EOS % 1.2 % (0-4.5); HEMATOCRIT 22.6 % (35.4-49); HEMOGLOBIN 7.4 GM/dL (11.7-16.9); LYMPH % 23.8 % (8-40); MCH 28.9 pg (25.7-33.7); MCHC 32.5 g/dl (32.0-35.9); MEAN PLT VOLUME 10.4 fl (7.5-11.1); MONO % 10.1 % (3.8-10.2); NEUT % 64.4 % (42.8-82.8); PLATELET COUNT 207 K/MM3 (134-434); RBC 2.54 M/mm3 (4.00-5.60); RDW 16.5 % (11.9-15.9); WHITE BLOOD COUNT 4.2 K/mm3 (4.0-10.0)
[2020-10-04 07:58] LABS: ALBUMIN 1.6 g/dl (3.4-5.0); CALCIUM 8.6 mg/dL (8.5-10.1)
[2020-10-04 08:02] LABS: CREATININE 0.3 mg/dL (0.55-1.3)
[2020-10-04 08:03] LABS: BILIRUBIN,TOTAL 0.3 mg/dL (0.2-1)
[2020-10-04] MEDS: AMINO ACIDS/PROTEIN HYDROLYS 30 ML LIQUID.PKT PO SCH ×2 (12:39→18:17)
[2020-10-04] MEDS: TIGECYCLINE 50 MG in DEXTROSE 5%-WATER - 100 ML IVPB SCH (12:41)
[2020-10-04] MEDS: guaiFENesin 200 MG/10 ML 10 ML UNIT-DOSE CUPS NGT SCH ×4 (12:42→22:50)
[2020-10-04] MEDS: ENOXAPARIN NA (PORCINE) 40 MG/0.4 ML DISP.SYRIN SQ SCH (12:42)
[2020-10-04] MEDS: FAMOTIDINE 40 MG/5 ML ORAL SUSPENSION NGT SCH (12:42)
[2020-10-04] MEDS: BACITRACIN 15 GM TUBE TOPICAL OINTMENT TP SCH ×3 (12:43→12:45)
[2020-10-04] MEDS: METOPROLOL TARTRATE 25 MG TABLET (FP) PO SCH (12:43)
[2020-10-04] MEDS: SODIUM CHLORIDE NASAL SPRAY 44 ML BOTTLE NS SCH ×2 (12:43→22:51)
[2020-10-04] MEDS: SUCRALFATE 1 GM/10 ML UNIT DOSE CUPS NGT SCH ×2 (12:43→22:50)
[2020-10-04] MEDS: levETIRAcetam 500 MG/5 ML INJECTION VIAL IVPB SCH (12:45)
[2020-10-04] MEDS: ACETAMINOPHEN 650 MG/20.3 ML ORAL SOLUTION (CUPS) NGT PRN (22:50)
[2020-10-04] MEDS: ATORVASTATIN CA 80 MG TABLET (FP) NGT SCH (22:51)
[2020-10-04] MEDS: MELATONIN 5 MG TABLETS NR SCH (22:51)
[2020-10-04] MEDS: levETIRAcetam 500 MG/5 ML ORAL SOLUTION (UNIT-DOSE CUPS) PO SCH (22:51)
[2020-10-05] MEDS: NYSTATIN 500,000 UNITS/5 ML SUSPENSION PO SCH ×5 (00:49→23:29)
[2020-10-05] MEDS: GABAPENTIN 250 MG/5 ML ORAL SOLUTION, 470 ML BOTTLE NGT SCH ×3 (06:31→22:29)
[2020-10-05 07:38] LABS: BASO % 0.6 % (0-2.0); HEMATOCRIT 24.1 % (35.4-49); HEMOGLOBIN 7.8 GM/dL (11.7-16.9); LYMPH % 28.2 % (8-40); MCH 28.6 pg (25.7-33.7); MCHC 32.2 g/dl (32.0-35.9); MEAN CELL VOLUME 88.8 fl (80-96); MEAN PLT VOLUME 10.1 fl (7.5-11.1); MONO % 8.3 % (3.8-10.2); NEUT % 60.9 % (42.8-82.8); PLATELET COUNT 231 K/MM3 (134-434); RBC 2.71 M/mm3 (4.00-5.60); RDW 16.4 % (11.9-15.9); WHITE BLOOD COUNT 3.9 K/mm3 (4.0-10.0)
[2020-10-05 07:41] LABS: ALBUMIN 1.7 g/dl (3.4-5.0); BLOOD UREA NITROGEN 15.8 mg/dL (7-18); CALCIUM 8.7 mg/dL (8.5-10.1)
[2020-10-05 07:44] LABS: CREATININE 0.3 mg/dL (0.55-1.3)
[2020-10-05 07:46] LABS: BILIRUBIN,TOTAL 0.3 mg/dL (0.2-1); TOT PROT 5.3 g/dl (6.4-8.2)
[2020-10-05] MEDS ORDERED: PT OWN MED DRAWER 7, Y5N ONE ×2 (10:50→11:38)
[2020-10-05] MEDS: AMINO ACIDS/PROTEIN HYDROLYS 30 ML LIQUID.PKT PO SCH ×2 (10:55→17:42)
[2020-10-05] MEDS: SUCRALFATE 1 GM/10 ML UNIT DOSE CUPS NGT SCH ×2 (10:55→22:29)
[2020-10-05] MEDS: guaiFENesin 200 MG/10 ML 10 ML UNIT-DOSE CUPS NGT SCH ×4 (10:55→22:29)
[2020-10-05] MEDS: METOPROLOL TARTRATE 25 MG TABLET (FP) PO SCH (10:56)
[2020-10-05] MEDS: FAMOTIDINE 40 MG/5 ML ORAL SUSPENSION NGT SCH (10:56)
[2020-10-05] MEDS: SODIUM CHLORIDE NASAL SPRAY 44 ML BOTTLE NS SCH ×2 (10:56→22:31)
[2020-10-05] MEDS: BACITRACIN 15 GM TUBE TOPICAL OINTMENT TP SCH (10:57)
[2020-10-05] MEDS: ENOXAPARIN NA (PORCINE) 40 MG/0.4 ML DISP.SYRIN SQ SCH (10:57)
[2020-10-05] MEDS: levETIRAcetam 500 MG/5 ML ORAL SOLUTION (UNIT-DOSE CUPS) PO SCH ×2 (10:57→22:29)
[2020-10-05] MEDS ORDERED: INSULIN (NOVOLOG) ASPART 100 UNITS/ML 10ML VIAL ONE (11:36)
[2020-10-05] MEDS: ALBUTEROL SO4 0.083% IH SOL 2.5 MG/3 ML VIAL.NEB. NEB PRN (19:56)
[2020-10-05] MEDS: MELATONIN 5 MG TABLETS NR SCH (22:29)
[2020-10-05] MEDS: ATORVASTATIN CA 80 MG TABLET (FP) NGT SCH (22:29)
[2020-10-05] MEDS: ACETAMINOPHEN 650 MG/20.3 ML ORAL SOLUTION (CUPS) NGT PRN (22:29)
[2020-10-06] MEDS: ACETAMINOPHEN 650 MG/20.3 ML ORAL SOLUTION (CUPS) NGT PRN ×2 (05:23→22:00)
[2020-10-06] MEDS: GABAPENTIN 250 MG/5 ML ORAL SOLUTION, 470 ML BOTTLE NGT SCH ×3 (05:23→21:59)
[2020-10-06] MEDS: NYSTATIN 500,000 UNITS/5 ML SUSPENSION PO SCH ×4 (05:24→23:00)
[2020-10-06 07:31] LABS: BASO % 1.1 % (0-2.0); EOS % 2.2 % (0-4.5); HEMATOCRIT 22.6 % (35.4-49); HEMOGLOBIN 7.5 GM/dL (11.7-16.9); LYMPH % 24.8 % (8-40); MCH 29.6 pg (25.7-33.7); MCHC 33.2 g/dl (32.0-35.9); MEAN CELL VOLUME 89.1 fl (80-96); MEAN PLT VOLUME 9.8 fl (7.5-11.1); MONO % 8.7 % (3.8-10.2); NEUT % 63.2 % (42.8-82.8); PLATELET COUNT 227 K/MM3 (134-434); RBC 2.54 M/mm3 (4.00-5.60); RDW 16.2 % (11.9-15.9); WHITE BLOOD COUNT 4.2 K/mm3 (4.0-10.0)
[2020-10-06 07:51] LABS: POTASSIUM 4.1 mmol/L (3.5-5.1)
[2020-10-06 07:53] LABS: ALBUMIN 1.7 g/dl (3.4-5.0); CALCIUM 8.8 mg/dL (8.5-10.1)
[2020-10-06 07:54] LABS: BLOOD UREA NITROGEN 14.1 mg/dL (7-18)
[2020-10-06 07:57] LABS: CREATININE 0.3 mg/dL (0.55-1.3)
[2020-10-06 07:58] LABS: BILIRUBIN,TOTAL 0.3 mg/dL (0.2-1); TOT PROT 5.5 g/dl (6.4-8.2)
[2020-10-06] MEDS: AMINO ACIDS/PROTEIN HYDROLYS 30 ML LIQUID.PKT PO SCH ×2 (09:54→17:21)
[2020-10-06] MEDS: SUCRALFATE 1 GM/10 ML UNIT DOSE CUPS NGT SCH ×2 (09:54→22:00)
[2020-10-06] MEDS: guaiFENesin 200 MG/10 ML 10 ML UNIT-DOSE CUPS NGT SCH ×4 (09:55→22:00)
[2020-10-06] MEDS: ENOXAPARIN NA (PORCINE) 40 MG/0.4 ML DISP.SYRIN SQ SCH (09:55)
[2020-10-06] MEDS: METOPROLOL TARTRATE 25 MG TABLET (FP) PO SCH (09:55)
[2020-10-06] MEDS: BACITRACIN 15 GM TUBE TOPICAL OINTMENT TP SCH (09:56)
[2020-10-06] MEDS ORDERED: PT OWN MED DRAWER 7, Y5N ONE (09:57)
[2020-10-06] MEDS: levETIRAcetam 500 MG/5 ML ORAL SOLUTION (UNIT-DOSE CUPS) PO SCH ×2 (09:58→22:00)
[2020-10-06] MEDS: FAMOTIDINE 40 MG/5 ML ORAL SUSPENSION NGT SCH (09:58)
[2020-10-06] MEDS: SODIUM CHLORIDE NASAL SPRAY 44 ML BOTTLE NS SCH ×2 (09:58→22:01)
[2020-10-06] MEDS: ATORVASTATIN CA 80 MG TABLET (FP) NGT SCH (22:00)
[2020-10-06] MEDS: MELATONIN 5 MG TABLETS NR SCH (22:00)
[2020-10-07] MEDS: GABAPENTIN 250 MG/5 ML ORAL SOLUTION, 470 ML BOTTLE NGT SCH ×3 (05:45→23:45)
[2020-10-07] MEDS: NYSTATIN 500,000 UNITS/5 ML SUSPENSION PO SCH ×4 (05:45→23:39)
[2020-10-07 07:46] LABS: HEMATOCRIT 23.5 % (35.4-49); HEMOGLOBIN 7.9 GM/dL (11.7-16.9); MCH 29.8 pg (25.7-33.7); MCHC 33.6 g/dl (32.0-35.9); MEAN CELL VOLUME 88.7 fl (80-96); MEAN PLT VOLUME 9.8 fl (7.5-11.1); PLATELET COUNT 208 K/MM3 (134-434); RBC 2.65 M/mm3 (4.00-5.60); RDW 16.1 % (11.9-15.9); WHITE BLOOD COUNT 4.4 K/mm3 (4.0-10.0)
[2020-10-07 07:54] LABS: POTASSIUM 4.1 mmol/L (3.5-5.1)
[2020-10-07 08:08] LABS: ALBUMIN 1.9 g/dl (3.4-5.0); BLOOD UREA NITROGEN 13.8 mg/dL (7-18)
[2020-10-07 08:11] LABS: CREATININE 0.2 mg/dL (0.55-1.3)
[2020-10-07 08:12] LABS: BILIRUBIN,TOTAL 0.4 mg/dL (0.2-1)
[2020-10-07 08:16] LABS: TOT PROT 5.4 g/dl (6.4-8.2)
[2020-10-07] MEDS: AMINO ACIDS/PROTEIN HYDROLYS 30 ML LIQUID.PKT PO SCH ×2 (08:53→17:04)
[2020-10-07] MEDS ORDERED: PT OWN MED DRAWER 7, Y5N ONE ×2 (09:42→23:04)
[2020-10-07] MEDS: METOPROLOL TARTRATE 25 MG TABLET (FP) PO SCH (10:18)
[2020-10-07] MEDS: levETIRAcetam 500 MG/5 ML ORAL SOLUTION (UNIT-DOSE CUPS) PO SCH (10:18)
[2020-10-07] MEDS: BACITRACIN 15 GM TUBE TOPICAL OINTMENT TP SCH (10:19)
[2020-10-07] MEDS: FAMOTIDINE 40 MG/5 ML ORAL SUSPENSION NGT SCH (10:19)
[2020-10-07] MEDS: SODIUM CHLORIDE NASAL SPRAY 44 ML BOTTLE NS SCH ×2 (10:19→23:47)
[2020-10-07] MEDS: guaiFENesin 200 MG/10 ML 10 ML UNIT-DOSE CUPS NGT SCH ×4 (10:19→23:39)
[2020-10-07] MEDS: SUCRALFATE 1 GM/10 ML UNIT DOSE CUPS NGT SCH ×2 (10:19→23:39)
[2020-10-07] MEDS: ACETAMINOPHEN 650 MG/20.3 ML ORAL SOLUTION (CUPS) NGT PRN (23:37)
[2020-10-07] MEDS: MELATONIN 5 MG TABLETS NR SCH (23:39)
[2020-10-07] MEDS: ATORVASTATIN CA 80 MG TABLET (FP) NGT SCH (23:40)
[2020-10-08] MEDS: levETIRAcetam 500 MG/5 ML ORAL SOLUTION (UNIT-DOSE CUPS) PO SCH ×2 (00:05→22:17)
[2020-10-08] MEDS: GABAPENTIN 250 MG/5 ML ORAL SOLUTION, 470 ML BOTTLE NGT SCH ×3 (05:58→22:17)
[2020-10-08] MEDS: NYSTATIN 500,000 UNITS/5 ML SUSPENSION PO SCH ×5 (05:59→23:12)
[2020-10-08] MEDS ORDERED: levETIRAcetam 500 MG/5 ML ORAL SOLUTION (UNIT-DOSE CUPS) GT ONE (06:00)
[2020-10-08] MEDS ORDERED: METOPROLOL TARTRATE 25 MG TABLET (FP) GT ONE (06:00)
[2020-10-08] MEDS: AMINO ACIDS/PROTEIN HYDROLYS 30 ML LIQUID.PKT PO SCH ×2 (08:37→17:29)
[2020-10-08] MEDS: SUCRALFATE 1 GM/10 ML UNIT DOSE CUPS NGT SCH ×2 (09:24→22:17)
[2020-10-08] MEDS: guaiFENesin 200 MG/10 ML 10 ML UNIT-DOSE CUPS NGT SCH ×4 (09:25→22:17)
[2020-10-08] MEDS: ENOXAPARIN NA (PORCINE) 40 MG/0.4 ML DISP.SYRIN SQ SCH (09:25)
[2020-10-08] MEDS: FAMOTIDINE 40 MG/5 ML ORAL SUSPENSION NGT SCH (09:25)
[2020-10-08] MEDS: BACITRACIN 15 GM TUBE TOPICAL OINTMENT TP SCH (09:27)
[2020-10-08] MEDS: SODIUM CHLORIDE NASAL SPRAY 44 ML BOTTLE NS SCH ×2 (09:27→22:18)
[2020-10-08] MEDS: MELATONIN 5 MG TABLETS NR SCH (22:17)
[2020-10-08] MEDS: ATORVASTATIN CA 80 MG TABLET (FP) NGT SCH (22:17)
[2020-10-08] MEDS: ACETAMINOPHEN 650 MG/20.3 ML ORAL SOLUTION (CUPS) NGT PRN (22:18)
[2020-10-09] MEDS: GABAPENTIN 250 MG/5 ML ORAL SOLUTION, 470 ML BOTTLE NGT SCH ×3 (05:43→22:39)
[2020-10-09] MEDS: ACETAMINOPHEN 650 MG/20.3 ML ORAL SOLUTION (CUPS) NGT PRN (05:43)
[2020-10-09] MEDS: NYSTATIN 500,000 UNITS/5 ML SUSPENSION PO SCH ×4 (05:44→23:44)
[2020-10-09] MEDS: ENOXAPARIN NA (PORCINE) 40 MG/0.4 ML DISP.SYRIN SQ SCH (10:31)
[2020-10-09] MEDS: BACITRACIN 15 GM TUBE TOPICAL OINTMENT TP SCH (10:31)
[2020-10-09] MEDS: SUCRALFATE 1 GM/10 ML UNIT DOSE CUPS NGT SCH ×2 (10:31→22:31)
[2020-10-09] MEDS: METOPROLOL TARTRATE 25 MG TABLET (FP) PO SCH ×2 (10:31→22:31)
[2020-10-09] MEDS ORDERED: PT OWN MED DRAWER 7, Y5N ONE ×3 (10:32→22:20)
[2020-10-09] MEDS: AMINO ACIDS/PROTEIN HYDROLYS 30 ML LIQUID.PKT PO SCH ×2 (10:34→18:45)
[2020-10-09] MEDS: guaiFENesin 200 MG/10 ML 10 ML UNIT-DOSE CUPS NGT SCH ×4 (10:35→22:31)
[2020-10-09] MEDS: FAMOTIDINE 40 MG/5 ML ORAL SUSPENSION NGT SCH (10:35)
[2020-10-09] MEDS: SODIUM CHLORIDE NASAL SPRAY 44 ML BOTTLE NS SCH ×2 (10:35→22:35)
[2020-10-09] MEDS: levETIRAcetam 500 MG/5 ML ORAL SOLUTION (UNIT-DOSE CUPS) PO SCH ×2 (10:43→22:32)
[2020-10-09] MEDS: MELATONIN 5 MG TABLETS NR SCH (22:30)
[2020-10-09] MEDS: ATORVASTATIN CA 80 MG TABLET (FP) NGT SCH (22:30)
[2020-10-10] MEDS: NYSTATIN 500,000 UNITS/5 ML SUSPENSION PO SCH ×3 (06:29→17:02)
[2020-10-10] MEDS: GABAPENTIN 250 MG/5 ML ORAL SOLUTION, 470 ML BOTTLE NGT SCH ×3 (06:29→21:51)
[2020-10-10] MEDS ORDERED: PT OWN MED DRAWER 7, Y5N ONE ×3 (09:46→23:57)
[2020-10-10] MEDS: FAMOTIDINE 40 MG/5 ML ORAL SUSPENSION NGT SCH (09:55)
[2020-10-10] MEDS: levETIRAcetam 500 MG/5 ML ORAL SOLUTION (UNIT-DOSE CUPS) PO SCH ×2 (09:55→21:52)
[2020-10-10] MEDS: AMINO ACIDS/PROTEIN HYDROLYS 30 ML LIQUID.PKT PO SCH ×2 (09:55→17:02)
[2020-10-10] MEDS: DOCUSATE NA 100 MG/10 ML UNIT-DOSE CUPS NGT PRN (09:55)
[2020-10-10] MEDS: METOPROLOL TARTRATE 25 MG TABLET (FP) PO SCH ×2 (09:56→21:52)
[2020-10-10] MEDS: guaiFENesin 200 MG/10 ML 10 ML UNIT-DOSE CUPS NGT SCH ×4 (09:56→21:51)
[2020-10-10] MEDS: SUCRALFATE 1 GM/10 ML UNIT DOSE CUPS NGT SCH ×2 (09:56→21:51)
[2020-10-10] MEDS: ENOXAPARIN NA (PORCINE) 40 MG/0.4 ML DISP.SYRIN SQ SCH (09:56)
[2020-10-10] MEDS: SODIUM CHLORIDE NASAL SPRAY 44 ML BOTTLE NS SCH ×2 (09:59→21:53)
[2020-10-10] MEDS: BACITRACIN 15 GM TUBE TOPICAL OINTMENT TP SCH (10:00)
[2020-10-10] MEDS: ACETAMINOPHEN 650 MG/20.3 ML ORAL SOLUTION (CUPS) NGT PRN (10:11)
[2020-10-10] MEDS: ESCITALOPRAM OXALATE 5 MG/5 ML NGT SCH (16:26)
[2020-10-10] MEDS: ATORVASTATIN CA 80 MG TABLET (FP) NGT SCH (21:51)
[2020-10-10] MEDS: MELATONIN 5 MG TABLETS NR SCH (21:51)
[2020-10-11] MEDS: NYSTATIN 500,000 UNITS/5 ML SUSPENSION PO SCH ×4 (00:02→18:42)
[2020-10-11] MEDS: GABAPENTIN 250 MG/5 ML ORAL SOLUTION, 470 ML BOTTLE NGT SCH ×3 (05:19→22:12)
[2020-10-11 07:57] LABS: BASO % 0.6 % (0-2.0); HEMATOCRIT 24.9 % (35.4-49); HEMOGLOBIN 8.3 GM/dL (11.7-16.9); LYMPH % 25.8 % (8-40); MCH 29.9 pg (25.7-33.7); MCHC 33.3 g/dl (32.0-35.9); MEAN CELL VOLUME 89.7 fl (80-96); MONO % 6.1 % (3.8-10.2); NEUT % 65.5 % (42.8-82.8); PLATELET COUNT 192 K/MM3 (134-434); RBC 2.78 M/mm3 (4.00-5.60); RDW 17.7 % (11.9-15.9); WHITE BLOOD COUNT 4.5 K/mm3 (4.0-10.0)
[2020-10-11 08:08] LABS: POTASSIUM 3.7 mmol/L (3.5-5.1)
[2020-10-11 08:26] LABS: ALBUMIN 2.1 g/dl (3.4-5.0); BLOOD UREA NITROGEN 14.3 mg/dL (7-18); CALCIUM 8.9 mg/dL (8.5-10.1)
[2020-10-11 08:29] LABS: CREATININE 0.3 mg/dL (0.55-1.3)
[2020-10-11 08:32] LABS: BILIRUBIN,TOTAL 0.8 mg/dL (0.2-1); TOT PROT 5.8 g/dl (6.4-8.2)
[2020-10-11] MEDS: AMINO ACIDS/PROTEIN HYDROLYS 30 ML LIQUID.PKT PO SCH ×2 (08:55→18:42)
[2020-10-11] MEDS: ESCITALOPRAM OXALATE 5 MG/5 ML NGT SCH (09:05)
[2020-10-11] MEDS: levETIRAcetam 500 MG/5 ML ORAL SOLUTION (UNIT-DOSE CUPS) PO SCH (09:05)
[2020-10-11] MEDS: SUCRALFATE 1 GM/10 ML UNIT DOSE CUPS NGT SCH ×2 (09:06→22:12)
[2020-10-11] MEDS: METOPROLOL TARTRATE 25 MG TABLET (FP) PO SCH ×2 (09:06→22:12)
[2020-10-11] MEDS: FAMOTIDINE 40 MG/5 ML ORAL SUSPENSION NGT SCH (09:06)
[2020-10-11] MEDS: guaiFENesin 200 MG/10 ML 10 ML UNIT-DOSE CUPS NGT SCH ×4 (09:06→22:13)
[2020-10-11] MEDS: SODIUM CHLORIDE NASAL SPRAY 44 ML BOTTLE NS SCH ×2 (09:07→22:12)
[2020-10-11] MEDS: BACITRACIN 15 GM TUBE TOPICAL OINTMENT TP SCH (09:07)
[2020-10-11] MEDS ORDERED: MIDAZOLAM HCL 2 MG/2 ML SINGLE DOSE VIAL ONE (15:38)
[2020-10-11] MEDS ORDERED: PROPOFOL 20 ML ONE ×2 (15:39→17:55)
[2020-10-11] MEDS ORDERED: SUCCINYLCHOLINE CHLORIDE 200 MG/10 ML SYRINGE ONE (15:40)
[2020-10-11] MEDS ORDERED: KETOROLAC TROMETHAMINE 30 MG/1 ML VIAL ONE (15:40)
[2020-10-11] MEDS ORDERED: ROCURONIUM BROMIDE 50 MG/5 ML SYRINGE ONE (15:40)
[2020-10-11] MEDS ORDERED: ONDANSETRON 4 MG/2 ML VIAL IVPUSH PRN ×2 (16:19→18:58)
[2020-10-11] MEDS ORDERED: LACTATED RINGERS SOLUTION 1,000 ML IV SCH (16:30)
[2020-10-11] MEDS ORDERED: SODIUM CHLORIDE 0.9% P/F 10 ML VIAL IJ ONE (16:55)
[2020-10-11] MEDS ORDERED: ceFAZolin SODIUM 1 GM VIAL ONE (16:55)
[2020-10-11] MEDS ORDERED: ceFAZolin SODIUM 1 GM VIAL IVPB ONE (16:55)
[2020-10-11] MEDS ORDERED: GLYCOPYRROLATE 0.2 MG/1 ML VIAL ONE (16:57)
[2020-10-11] MEDS ORDERED: NEOSTIGMINE METHYLSULFATE 0.5 MG/ML - 10 ML MDV ONE (16:57)
[2020-10-11] MEDS ORDERED: BUPIVACAINE HCL/PF 0.5% (5 MG/ML) 30 ML VIAL IJ ONE (17:50)
[2020-10-11] MEDS ORDERED: FENTANYL PATCH WASTE MC PRN (18:58)
[2020-10-11] MEDS ORDERED: ACETAMINOPHEN 650 MG/20.3 ML ORAL SOLUTION (CUPS) NGT PRN (18:58)
[2020-10-11] MEDS: ATORVASTATIN CA 80 MG TABLET (FP) NGT SCH (22:12)
[2020-10-11] MEDS: MELATONIN 5 MG TABLETS NR SCH (22:12)
[2020-10-11] MEDS: LACTATED RINGERS SOLUTION 1,000 ML IV SCH (22:29)
[2020-10-11] MEDS: levETIRAcetam 500 MG/5 ML INJECTION VIAL IVPB SCH (22:43)
[2020-10-12] MEDS: NYSTATIN 500,000 UNITS/5 ML SUSPENSION PO SCH ×2 (00:11→07:32)
[2020-10-12] MEDS: GABAPENTIN 250 MG/5 ML ORAL SOLUTION, 470 ML BOTTLE NGT SCH (07:32)
[2020-10-12] MEDS ORDERED: FAMOTIDINE 40 MG/5 ML ORAL SUSPENSION NGT SCH (10:00)
[2020-10-12] MEDS ORDERED: ESCITALOPRAM OXALATE 5 MG/5 ML NGT SCH (10:00)
[2020-10-12] MEDS: METOPROLOL TARTRATE 25 MG TABLET (FP) PO SCH ×2 (11:28→21:40)
[2020-10-12] MEDS: ENOXAPARIN NA (PORCINE) 40 MG/0.4 ML DISP.SYRIN SQ SCH (11:56)
[2020-10-12] MEDS: BACITRACIN 15 GM TUBE TOPICAL OINTMENT TP SCH (11:56)
[2020-10-12] MEDS: levETIRAcetam 500 MG/5 ML INJECTION VIAL IVPB SCH ×2 (11:56→21:39)
[2020-10-12] MEDS: SODIUM CHLORIDE NASAL SPRAY 44 ML BOTTLE NS SCH ×2 (11:57→21:44)
[2020-10-12] MEDS: FAMOTIDINE 20 MG/50 ML IVPB 20 MG/50 ML MG IVPB SCH ×2 (11:57→21:39)
[2020-10-12] MEDS: LACTATED RINGERS SOLUTION 1,000 ML IV SCH (19:13)
[2020-10-12 20:51] LABS: HEMATOCRIT 22.8 % (35.4-49); HEMOGLOBIN 7.4 GM/dL (11.7-16.9); MCH 29.5 pg (25.7-33.7); MCHC 32.6 g/dl (32.0-35.9); MEAN CELL VOLUME 90.5 fl (80-96); MEAN PLT VOLUME 9.9 fl (7.5-11.1); PLATELET COUNT 200 K/MM3 (134-434); RBC 2.52 M/mm3 (4.00-5.60); RDW 17.6 % (11.9-15.9); WHITE BLOOD COUNT 4.5 K/mm3 (4.0-10.0)
[2020-10-12] MEDS: ACETAMINOPHEN 1000 MG/100 ML VIAL (NON FORMULARY) IVPB PRN (21:41)
[2020-10-13] MEDS: ACETAMINOPHEN 1000 MG/100 ML VIAL (NON FORMULARY) IVPB PRN (05:36)
[2020-10-13] MEDS: levETIRAcetam 500 MG/5 ML INJECTION VIAL IVPB SCH ×3 (10:42→23:07)
[2020-10-13] MEDS: ENOXAPARIN NA (PORCINE) 40 MG/0.4 ML DISP.SYRIN SQ SCH (10:43)
[2020-10-13] MEDS: BACITRACIN 15 GM TUBE TOPICAL OINTMENT TP SCH (10:44)
[2020-10-13] MEDS: METOPROLOL TARTRATE 25 MG TABLET (FP) PO SCH ×2 (10:44→22:25)
[2020-10-13] MEDS: FAMOTIDINE 20 MG/50 ML IVPB 20 MG/50 ML MG IVPB SCH ×2 (10:46→22:27)
[2020-10-13] MEDS: SODIUM CHLORIDE NASAL SPRAY 44 ML BOTTLE NS SCH ×2 (10:46→23:13)
[2020-10-13] MEDS ORDERED: FUROSEMIDE 40 MG/4 ML INJECTABLE VIAL IVPUSH ONE (11:30)
[2020-10-13] MEDS: LACTATED RINGERS SOLUTION 1,000 ML IV SCH (12:12)
[2020-10-13 12:46] LABS: BASO % 0.6 % (0-2.0); EOS % 0.9 % (0-4.5); HEMATOCRIT 23.3 % (35.4-49); HEMOGLOBIN 7.7 GM/dL (11.7-16.9); LYMPH % 17.4 % (8-40); MCH 29.9 pg (25.7-33.7); MCHC 32.9 g/dl (32.0-35.9); MEAN CELL VOLUME 91.1 fl (80-96); NEUT % 75.1 % (42.8-82.8); PLATELET COUNT 235 K/MM3 (134-434); RBC 2.56 M/mm3 (4.00-5.60); RDW 17.8 % (11.9-15.9); WHITE BLOOD COUNT 4.1 K/mm3 (4.0-10.0)
[2020-10-13 13:02] LABS: POTASSIUM 3.8 mmol/L (3.5-5.1)
[2020-10-13 13:05] LABS: ALBUMIN 2.2 g/dl (3.4-5.0); BLOOD UREA NITROGEN 14.6 mg/dL (7-18); CALCIUM 9.1 mg/dL (8.5-10.1)
[2020-10-13 13:08] LABS: CREATININE 0.2 mg/dL (0.55-1.3)
[2020-10-13 13:10] LABS: BILIRUBIN,TOTAL 0.7 mg/dL (0.2-1)
[2020-10-13 13:13] LABS: N-TERMINAL BNP 2580.5 pg/ml (5-125)
[2020-10-14] MEDS: LACTATED RINGERS SOLUTION 1,000 ML IV SCH ×3 (01:27→21:33)
[2020-10-14] MEDS: ENOXAPARIN NA (PORCINE) 40 MG/0.4 ML DISP.SYRIN SQ SCH (10:57)
[2020-10-14] MEDS: FAMOTIDINE 20 MG/50 ML IVPB 20 MG/50 ML MG IVPB SCH ×2 (10:57→21:33)
[2020-10-14] MEDS: levETIRAcetam 500 MG/5 ML INJECTION VIAL IVPB SCH ×2 (10:57→21:33)
[2020-10-14] MEDS: BACITRACIN 15 GM TUBE TOPICAL OINTMENT TP SCH (10:57)
[2020-10-14] MEDS: METOPROLOL TARTRATE 5 MG/5 ML VIAL IVPB PRN (11:01)
[2020-10-14] MEDS: SODIUM CHLORIDE NASAL SPRAY 44 ML BOTTLE NS SCH ×2 (11:03→21:33)
[2020-10-14] MEDS: METOPROLOL TARTRATE 25 MG TABLET (FP) PO SCH ×2 (11:03→21:37)
[2020-10-14] MEDS: levETIRAcetam 500 MG/5 ML ORAL SOLUTION (UNIT-DOSE CUPS) PO SCH (21:37)
[2020-10-15] MEDS: METOPROLOL TARTRATE 5 MG/5 ML VIAL IVPB PRN (01:54)
[2020-10-15] MEDS: ACETAMINOPHEN 1000 MG/100 ML VIAL (NON FORMULARY) IVPB PRN ×2 (05:34→22:45)
[2020-10-15] MEDS: ENOXAPARIN NA (PORCINE) 40 MG/0.4 ML DISP.SYRIN SQ SCH (09:54)
[2020-10-15] MEDS: FAMOTIDINE 20 MG/50 ML IVPB 20 MG/50 ML MG IVPB SCH (09:54)
[2020-10-15] MEDS: levETIRAcetam 500 MG/5 ML ORAL SOLUTION (UNIT-DOSE CUPS) PO SCH (09:55)
[2020-10-15] MEDS: METOPROLOL TARTRATE 25 MG TABLET (FP) PO SCH ×3 (09:55→23:10)
[2020-10-15] MEDS: BACITRACIN 15 GM TUBE TOPICAL OINTMENT TP SCH (09:56)
[2020-10-15] MEDS: levETIRAcetam 500 MG/5 ML INJECTION VIAL IVPB SCH (09:56)
[2020-10-15] MEDS: SODIUM CHLORIDE NASAL SPRAY 44 ML BOTTLE NS SCH ×2 (09:56→23:17)
[2020-10-15] MEDS ORDERED: FUROSEMIDE 40 MG/4 ML INJECTABLE VIAL IVPUSH ONE (10:17)
[2020-10-15 12:02] LABS: BASO % 0.2 % (0-2.0); HEMATOCRIT 18.5 % (35.4-49); LYMPH % 6.7 % (8-40); MCH 29.4 pg (25.7-33.7); MCHC 32.3 g/dl (32.0-35.9); MEAN CELL VOLUME 91.2 fl (80-96); MEAN PLT VOLUME 9.7 fl (7.5-11.1); MONO % 9.2 % (3.8-10.2); NEUT % 83.9 % (42.8-82.8); PLATELET COUNT 249 K/MM3 (134-434); RBC 2.02 M/mm3 (4.00-5.60); RDW 18.1 % (11.9-15.9); WHITE BLOOD COUNT 5.7 K/mm3 (4.0-10.0)
[2020-10-15 12:20] LABS: CHLORIDE 102 mmol/L (98-107); SODIUM 144 mmol/L (136-145)
[2020-10-15 12:22] LABS: ALBUMIN 1.9 g/dl (3.4-5.0); BLOOD UREA NITROGEN 10.6 mg/dL (7-18); CALCIUM 8.6 mg/dL (8.5-10.1); CO2 39 mmol/L (21-32); GLUCOSE,RANDOM 296 mg/dL (74-106)
[2020-10-15 12:25] LABS: CREATININE 0.3 mg/dL (0.55-1.3); SGOT/AST 8 U/L (15-37); SGPT/ALT < 6 U/L (13-61)
[2020-10-15 12:27] LABS: BILIRUBIN,TOTAL 0.5 mg/dL (0.2-1); TOT PROT 5.4 g/dl (6.4-8.2)
[2020-10-15 12:28] LABS: ALK PHOS 85 U/L (45-117)
[2020-10-15 12:29] LABS: ANION GAP 3 MMOL/L (8-16)
[2020-10-15 12:31] LABS: POTASSIUM 2.9 mmol/L (3.5-5.1)
[2020-10-15] MEDS ORDERED: POTASSIUM CHLORIDE ORAL LIQUID 20 MEQ/15 ML PO ONE (12:43)
[2020-10-15] MEDS: KCL 10 MEQ IVPB 10 MEQ/100 ML INFUS.BAG IVPB SCH ×3 (13:29→17:10)
[2020-10-15] MEDS: guaiFENesin 200 MG/10 ML 10 ML UNIT-DOSE CUPS NGT SCH ×3 (13:30→23:10)
[2020-10-15] MEDS: NYSTATIN 500,000 UNITS/5 ML SUSPENSION PO SCH ×3 (13:31→23:10)
[2020-10-15] MEDS: GABAPENTIN 250 MG/5 ML ORAL SOLUTION, 470 ML BOTTLE NGT SCH ×2 (17:10→23:12)
[2020-10-15] MEDS: SUCRALFATE 1 GM/10 ML UNIT DOSE CUPS NGT SCH (23:10)
[2020-10-15] MEDS: ATORVASTATIN CA 80 MG TABLET (FP) NGT SCH (23:11)
[2020-10-15] MEDS: levETIRAcetam 500 MG/5 ML ORAL SOLUTION (UNIT-DOSE CUPS) GT SCH (23:11)
[2020-10-15] MEDS: MELATONIN 5 MG TABLETS NR SCH (23:15)
[2020-10-16] MEDS: METOPROLOL TARTRATE 25 MG TABLET (FP) PO SCH (05:35)
[2020-10-16] MEDS: GABAPENTIN 250 MG/5 ML ORAL SOLUTION, 470 ML BOTTLE NGT SCH (05:36)
[2020-10-16] MEDS: NYSTATIN 500,000 UNITS/5 ML SUSPENSION PO SCH ×3 (05:36→17:28)
[2020-10-16 08:22] LABS: CHLORIDE 101 mmol/L (98-107); POTASSIUM 3.4 mmol/L (3.5-5.1); SODIUM 143 mmol/L (136-145)
[2020-10-16 08:36] LABS: ALBUMIN 1.8 g/dl (3.4-5.0); ANION GAP 4 MMOL/L (8-16); BLOOD UREA NITROGEN 12.5 mg/dL (7-18); CALCIUM 8.7 mg/dL (8.5-10.1); CO2 38 mmol/L (21-32); GLUCOSE,RANDOM 236 mg/dL (74-106)
[2020-10-16 08:39] LABS: CREATININE 0.4 mg/dL (0.55-1.3); SGOT/AST 8 U/L (15-37)
[2020-10-16 08:41] LABS: BILIRUBIN,TOTAL 0.6 mg/dL (0.2-1)
[2020-10-16 08:42] LABS: ALK PHOS 90 U/L (45-117); SGPT/ALT < 6 U/L (13-61); TOT PROT 5.5 g/dl (6.4-8.2)
[2020-10-16] MEDS: SUCRALFATE 1 GM/10 ML UNIT DOSE CUPS NGT SCH (09:42)
[2020-10-16] MEDS: ENOXAPARIN NA (PORCINE) 40 MG/0.4 ML DISP.SYRIN SQ SCH (09:42)
[2020-10-16] MEDS: SODIUM CHLORIDE NASAL SPRAY 44 ML BOTTLE NS SCH ×2 (09:43→23:02)
[2020-10-16] MEDS: BACITRACIN 15 GM TUBE TOPICAL OINTMENT TP SCH (09:43)
[2020-10-16] MEDS: guaiFENesin 200 MG/10 ML 10 ML UNIT-DOSE CUPS NGT SCH (09:43)
[2020-10-16] MEDS: levETIRAcetam 500 MG/5 ML ORAL SOLUTION (UNIT-DOSE CUPS) GT SCH ×2 (09:43→22:59)
[2020-10-16] MEDS ORDERED: POTASSIUM CHLORIDE ORAL LIQUID 20 MEQ/15 ML PO ONE (10:10)
[2020-10-16] MEDS ORDERED: MELATONIN 5 MG TABLETS NR SCH (10:13)
[2020-10-16] MEDS ORDERED: ACETAMINOPHEN 650 MG/20.3 ML ORAL SOLUTION (CUPS) GT PRN ×2 (10:13→12:21)
[2020-10-16] MEDS ORDERED: ESCITALOPRAM OXALATE 5 MG/5 ML GT SCH (10:13)
[2020-10-16 11:01] LABS: BASO % 0.4 % (0-2.0); HEMOGLOBIN 8.2 GM/dL (11.7-16.9); WHITE BLOOD COUNT 4.3 K/mm3 (4.0-10.0)
[2020-10-16 11:09] LABS: EOS % 2.4 % (0-4.5); LYMPH % 19.7 % (8-40); MCH 29.6 pg (25.7-33.7); MCHC 32.7 g/dl (32.0-35.9); MEAN CELL VOLUME 90.5 fl (80-96); MEAN PLT VOLUME 9.3 fl (7.5-11.1); MONO % 10.5 % (3.8-10.2); PLATELET COUNT 212 K/MM3 (134-434); RBC 2.76 M/mm3 (4.00-5.60)
[2020-10-16] MEDS ORDERED: POTASSIUM CHLORIDE ORAL LIQUID 20 MEQ/15 ML GT ONE (11:15)
[2020-10-16] MEDS: FAMOTIDINE 40 MG/5 ML ORAL SUSPENSION PEG SCH (11:18)
[2020-10-16] MEDS: SUCRALFATE 1 GM/10 ML UNIT DOSE CUPS GT SCH ×2 (11:20→22:59)
[2020-10-16] MEDS: METOPROLOL TARTRATE 25 MG TABLET (FP) GT SCH ×3 (11:21→23:00)
[2020-10-16] MEDS: GABAPENTIN 250 MG/5 ML ORAL SOLUTION, 470 ML BOTTLE GT SCH ×3 (11:21→23:02)
[2020-10-16] MEDS: guaiFENesin 200 MG/10 ML 10 ML UNIT-DOSE CUPS GT SCH ×3 (13:25→22:56)
[2020-10-16] MEDS ORDERED: ATORVASTATIN CA 80 MG TABLET (FP) GT SCH (22:00)
[2020-10-17] MEDS: NYSTATIN 500,000 UNITS/5 ML SUSPENSION PO SCH ×3 (01:00→12:10)
[2020-10-17] MEDS: METOPROLOL TARTRATE 25 MG TABLET (FP) GT SCH ×2 (06:47→14:11)
[2020-10-17] MEDS: GABAPENTIN 250 MG/5 ML ORAL SOLUTION, 470 ML BOTTLE GT SCH ×2 (06:48→14:12)
[2020-10-17 08:21] LABS: BASO % 0.6 % (0-2.0); EOS % 3.9 % (0-4.5); HEMATOCRIT 24.7 % (35.4-49); HEMOGLOBIN 8.1 GM/dL (11.7-16.9); LYMPH % 23.3 % (8-40); MCH 29.7 pg (25.7-33.7); MCHC 32.8 g/dl (32.0-35.9); MEAN CELL VOLUME 90.4 fl (80-96); MEAN PLT VOLUME 9.5 fl (7.5-11.1); MONO % 10.1 % (3.8-10.2); NEUT % 62.1 % (42.8-82.8); PLATELET COUNT 214 K/MM3 (134-434); RBC 2.73 M/mm3 (4.00-5.60); RDW 17.4 % (11.9-15.9); WHITE BLOOD COUNT 3.3 K/mm3 (4.0-10.0)
[2020-10-17 08:40] LABS: CHLORIDE 98 mmol/L (98-107); POTASSIUM 3.9 mmol/L (3.5-5.1); SODIUM 141 mmol/L (136-145)
[2020-10-17 08:59] LABS: ALBUMIN 1.7 g/dl (3.4-5.0)
[2020-10-17 09:00] LABS: CALCIUM 8.7 mg/dL (8.5-10.1); GLUCOSE,RANDOM 288 mg/dL (74-106); SGOT/AST 7 U/L (15-37); SGPT/ALT < 6 U/L (13-61)
[2020-10-17 09:01] LABS: BILIRUBIN,TOTAL 0.4 mg/dL (0.2-1)
[2020-10-17 09:02] LABS: ALK PHOS 86 U/L (45-117); CREATININE 0.3 mg/dL (0.55-1.3); TOT PROT 5.1 g/dl (6.4-8.2)
[2020-10-17 09:03] LABS: BLOOD UREA NITROGEN 14.3 mg/dL (7-18)
[2020-10-17 09:04] LABS: ANION GAP 1 MMOL/L (8-16); CO2 41 mmol/L (21-32)
[2020-10-17] MEDS: SUCRALFATE 1 GM/10 ML UNIT DOSE CUPS GT SCH (10:01)
[2020-10-17] MEDS: BACITRACIN 15 GM TUBE TOPICAL OINTMENT TP SCH (10:01)
[2020-10-17] MEDS: levETIRAcetam 500 MG/5 ML ORAL SOLUTION (UNIT-DOSE CUPS) GT SCH (10:02)
[2020-10-17] MEDS: ENOXAPARIN NA (PORCINE) 40 MG/0.4 ML DISP.SYRIN SQ SCH (10:04)
[2020-10-17] MEDS: SODIUM CHLORIDE NASAL SPRAY 44 ML BOTTLE NS SCH (10:05)
[2020-10-17] MEDS: guaiFENesin 200 MG/10 ML 10 ML UNIT-DOSE CUPS GT SCH ×2 (10:06→14:10)
[2020-10-17 14:03] VITALS: BP 135/66; PULSE 117; TEMP 98.3
[2020-10-17] MEDS: FAMOTIDINE 40 MG/5 ML ORAL SUSPENSION PEG SCH (15:28)
== END 2020-10-17 18:59 | DRG 393 ==
LOC: JER 17:39 → JERBED 18:47 → J4S 09-17 10:39 → J7W 09-18 14:03
PROVIDERS: ADMIT Internal Medicine; ATTEND Family Medicine
PROC: 30233N1 Transfusion of Nonautologous Red Blood Cells into Peripheral Vein, Percutaneous Approach (ICD-10-PCS; 2020-09-15)
PROC: 0CJS8ZZ Inspection of Larynx, Via Natural or Artificial Opening Endoscopic (ICD-10-PCS; 2020-09-16)
PROC: 0DH67UZ Insertion of Feeding Device into Stomach, Via Natural or Artificial Opening (ICD-10-PCS; principal; 2020-10-07)
PROC: 0DH63UZ Insertion of Feeding Device into Stomach, Percutaneous Approach (ICD-10-PCS; 2020-10-11)
PROC: 3E0G76Z Introduction of Nutritional Substance into Upper GI, Via Natural or Artificial Opening (ICD-10-PCS; 2020-10-11)
DX: K94.22 Gastrostomy infection (principal); A41.50 Gram-negative sepsis, unspecified; J18.9 Pneumonia, unspecified organism; T85.528A Displacement of other gastrointestinal prosthetic devices, implants and grafts, initial encounter; N39.0 Urinary tract infection, site not specified; L03.319 Cellulitis of trunk, unspecified; J98.11 Atelectasis; J90 Pleural effusion, not elsewhere classified; Z16.12 Extended spectrum beta lactamase (ESBL) resistance; E46 Unspecified protein-calorie malnutrition; Z68.1 Body mass index [BMI] 19.9 or less, adult; K94.23 Gastrostomy malfunction; R00.0 Tachycardia, unspecified; D72.829 Elevated white blood cell count, unspecified; R13.10 Dysphagia, unspecified; E11.9 Type 2 diabetes mellitus without complications; I25.10 Atherosclerotic heart disease of native coronary artery without angina pectoris; D64.9 Anemia, unspecified; J44.9 Chronic obstructive pulmonary disease, unspecified; R09.89 Other specified symptoms and signs involving the circulatory and respiratory systems; R49.0 Dysphonia; R06.89 Other abnormalities of breathing; E87.6 Hypokalemia; E78.00 Pure hypercholesterolemia, unspecified; R16.1 Splenomegaly, not elsewhere classified; A49.8 Other bacterial infections of unspecified site; D72.819 Decreased white blood cell count, unspecified; Z95.1 Presence of aortocoronary bypass graft; Y84.8 Other medical procedures as the cause of abnormal reaction of the patient, or of later complication, without mention of misadventure at the time of the procedure; Z20.828 Contact with and (suspected) exposure to other viral communicable diseases
CPT/HCPCS: 36415; 36430; 36511; 36600; 49440; 71045-TC-FY; 74018-TC-FY; 74160-TC; 74177-TC; 74230-TC-FY; 80048; 80053; 81003; 82272; 82803; 82962; 83036; 83540; 83550; 83605; 83735; 83880; 84443; 84484; 85025; 85027; 85610; 85730; 86140; 86850; 86900; 86901; 86922; 87040; 87045; 87046; 87070; 87086; 87186; 87205; 87324; 87449; 87899; 92611-GN; 93005; 93010; 93970-TC; 94010; 94640; 94760; 97161-GP; 99285-25; C9803; G0008; G0480; J0131; J1644; J3243; P9038; P9058; Q2036; Q9967; U0003